=== PATIENT | male | born 1945 | race Caucasian/White ===

== ENCOUNTER → 2016-09-15 | Outpatient (CLI) | payer BC ==
[~2016-09-15] MED LIST: ASPI81TA28 PO; ATOR-24 PO; ENAL10TA88 PO; FLAX10007 PO; GLC/500 PO; HYDR25TA4 PO; ISOS60TA25 PO; METO25TA56 PO; MISCTAB78 PO; MULT-506 PO; OMEG10007 PO; PRED1SUS3 OPR; SIMV10TA2 PO; VITA-88 PO
[2016-09-15 14:29] LABS: ESTIMATED AVERAGE GLUCOSE 143 mg/dl; HA1C FLAG Normal (Normal)
[2016-09-15 17:37] LABS: ALT/SGPT 46 U/L (12-78); AST/SGOT 38 U/L (15-37); BLOOD UREA NITROGEN 25 mg/dl (7-18); BUN/CREATININE RATIO 24.8 (10-20); CALCIUM 8.6 mg/dl (8.5-10.1); CARBON DIOXIDE 31 mmol/L (21-32); CHLORIDE 102 mmol/L (98-107); CREATININE 0.99 mg/dl (0.60-1.40); GLUCOSE 126 mg/dl (70-99); POTASSIUM 3.8 mmol/L (3.5-5.1); SODIUM 139 mmol/L (136-145); TRIGLYCERIDES 82 mg/dl (0-150); VERY LOW DENSITY LIPOPROT CALC 16 mg/dl
[2016-09-15 17:57] LABS: CHOLESTEROL 108 mg/dl (0-200); CHOLESTEROL/HDL RATIO 2.3; HDL CHOLESTEROL 47 mg/dl; LDL CHOLESTEROL CALCULATED 45 mg/dl
--- NOTE | 2016-09-20 09:34 | CODING QUERY MEDICAL NECESSITY ---
SUPPORTING DIAGNOSIS NEEDED A supporting diagnosis is required for the test/procedure performed on this patient in order for us to be reimbursed by the patient's insurance. Please provide a supporting diagnosis for the following test/procedure listed below next to the test name along with your signature. *If there is no additional diagnosis for this patient that would support the following test/procedure please document that below next to the test/procedure. Test(s)/Procedure(s) that require a supporting diagnosis: DOS 09/15 * Hba1c DIAGNOSIS: Provider Signature: Date: Thank you Shelia Dominguez Health Information Management Once completed, please kindly fax back to [phone] For questions please call [phone]
== END | disposition home or self-care (01) ==
LOC: C.LABMFLN 08:07
PROVIDERS: ATTEND Family Medicine
DX: E11.9 Type 2 diabetes mellitus without complications (principal); E78.5 Hyperlipidemia, unspecified; I10 Essential (primary) hypertension; Z12.5 Encounter for screening for malignant neoplasm of prostate

== ENCOUNTER → 2016-09-16 | Outpatient (CLI) | payer BC ==
[2016-09-16 18:59] LABS: RATIO 5.4 mcg/mg (0-30.0)
== END | disposition home or self-care (01) ==
LOC: C.LABMFLN 07:27
PROVIDERS: ATTEND Family Medicine
DX: E11.9 Type 2 diabetes mellitus without complications (principal)

== ENCOUNTER → 2016-11-24 | Day surgery (SDC) | payer BC ==
[2016-11-19 09:34] VITALS: Ht 172.7 cm; Wt 77.3 kg
[~2016-11-24] VITALS: Ht 172.7 cm; Wt 77.3 kg
[~2016-11-24] MED LIST changes: +500ML BSS 0.3ML EPI 1:1000PF IRRIG ONE; +ACETAMINOPHEN 325 MG TAB PO PRN; +AMVISC PLUS 0.8ML SYRINGE INT OCU ONE; +ATROPINE SULFATE 0.1 MG/ML 5ML SYR IV PRN; +AcetaZOLAMIDE 250 MG TAB PO SCH; +BETAXOLOL HCL 0.25% OP SUSP PER DROP CHARGE OPR SCH; +BRIMONIDINE TART 0.2% OP SOLN PER DROP CHARGE ONE; +BSS FLUSH ONE; +ENDOCOAT 0.85ML SYRINGE INT OCU ONE; +EpHEDrine SULFATE INJ 50 MG/ML AMP IV PRN; +EpINEphrine INJ 1MG/ML AMP 1 MG/ML AMP ONE; +LACTATED RINGER'S 1000ML 500 ML IV SCH; +LIDOCAINE 4% OP SOLN DROP CHARGE ONE; +LIDOCAINE 4% OP SOLN DROP CHARGE OPR SCH; +LIDOCAINE HCL 1% MPF 2 ML VIAL ONE; +MIDAZOLAM HCL 1 MG/ML 2ML VIAL ONE; +MIX: 4ML BSS 1ML EPI 1:1000 PF INSTIL ONE; +MOXIFLOXACIN OPH SOLN PER DROP CHARGE ONE; +OCUCOAT 1 ML SOLN IO ONE; +PHENYLEPHRINE HCL 2.5% OP SOLN PER DROP CHARGE OPR SCH; +POVIDONE-IODINE OP SOLN 30 ML BTL ONE; +PROPARACAINE 0.5% OP SOLN PER DROP CHARGE OPR SCH; -SIMV10TA2 PO; +TOBRAMYCIN/DEXAMETHASONE OPH OINT PER APPLN CHARGE ONE
--- NOTE | 2016-11-24 07:16 | History & Physical Bridge - SC ---
H&P Re-Evaluation Bridge Note: I have examined the patient, reviewed the History & Physical and in the interval since the performance of the History & Physical I have noted the following changes of clinical significance: No changes noted
[2016-11-24] MEDS: PHENYLEPHRINE HCL 2.5% OP SOLN PER DROP CHARGE OPR SCH ×2 (07:37→07:42)
[2016-11-24] MEDS: TROPICAMIDE 1% OP SOLN PER DROP CHARGE OPR SCH ×2 (07:38→07:43)
[2016-11-24] MEDS: CYCLOPENTOLATE HCL 1% OP SOLN PER DROP CHARGE OPR SCH ×2 (07:39→07:44)
[2016-11-24] MEDS: MOXIFLOXACIN OPH SOLN PER DROP CHARGE OPR SCH ×2 (07:40→07:50)
--- NOTE | 2016-11-24 08:37 | Discharge Instructions-SurgCtr ---
Discharge Instructions Date of Service Nov 24, 2016. Visit Reason for Visit: Right Cataract Discharge Discharge Diagnosis / Problem: lens implant right eye Discharge Goals Goal(s): Improve function Activity Recommendations Activity Limitations: resume your previous activity Lifting Limitations: no more than 10 pounds Exercise/Sports Limitations: gradually increase as tolerated May Resume Sexual Activity: when tolerated Shower/Bathe: tomorrow Driving or Machine Use: resume 1 day after discharge Anesthesia . Post Anesthesia Instructions: If you have had General Anesthesia or IV Sedation: * Do not drive today. * Resume driving when surgeon permits. * Do not make important decisions or sign legal documents today. * Call surgeon for: 1. Temperature elevations greater than 101 degrees F. 2. Uncontrollable pain. 3. Excessive bleeding. 4. Persistent nausea and vomiting. 5. Medication intolerance (nausea, vomiting or rash). * For nausea and vomiting use only clear liquids such as: tea, soda, bouillon until nausea subsides, then gradually increase diet as tolerated. * If you have any concerns or questions, call your surgeon's office. If physician is unavailable and it is an emergency, call 911 or go to the nearest emergency room. . Instructions / Follow-Up Instructions / Follow-Up ACTIVITY RECOMMENDATIONS: * Light activities. * Mild irritation and blurred vision are common for the first few days. * You may walk outside, read, watch television. * Redness around the white part of the eye is common. MEDICATIONS: Resume previous medications unless instructed otherwise by your surgeon. * Take white Diamox (Acetazolamide) tablet at 1 pm today. Start all eye drops at 1 pm today: * Eye drops (today and tomorrow): Prednisone - one drop in operative eye every 3 hours while awake Ofloxacin - one drop in operative eye every 3 hours while awake SPECIAL CARE INSTRUCTIONS: * Tape plastic shield over eye to sleep at night. Call your doctor at with any concerns or problems. FOLLOW UP VISIT: Follow-up with Dr Pascal at [place] office as scheduled. Diet Recommendations Home Diet: no limitations Procedures Procedures Performed: cataract extraction with lens implant Pending Studies Studies pending at discharge: no Medical Emergencies . Who to Call and When: Medical Emergencies: If at any time you feel your situation is an emergency, please call 911 immediately. . Non-Emergent Contact Non-Emergency issues call your: Manager Development Call Non-Emergent contact if: your pain is not controlled [phone] . . "Provider Documentation" section prepared by Slick Pascal. .
--- NOTE | 2016-11-24 08:39 | [facility] Operative Report ---
Operative Report Date of Service Nov 24, 2016. Operative Report 1. PREOPERATIVE DIAGNOSIS: Senile nuclear cataract, right eye. 2. POSTOPERATIVE DIAGNOSIS: Senile nuclear cataract, right eye. 3. PROCEDURE: Phacoemulsification of right cataract with posterior chamber lens implant, type Nir, model [id number], power +17.5 diopters. ANESTHESIA: Local standby. SURGEON: Dr. Pascal. COMPLICATIONS: None. OPERATING TIME: 10 minutes. 4. OPERATION AND FINDINGS: DESCRIPTION OF PROCEDURE: The right pupil was dilated. The anesthetic was administered using a topical technique. The right eye was prepped and draped. A speculum was placed. A clear corneal incision was formed. The chamber was filled with Amvisc Plus and Endocoat. Epinephrine solution was used. A paracentesis was placed. A capsulorrhexis was performed. The nucleus was hydrodissected. The lens was removed with phacoemulsification. Time was 5.93 seconds. The aspiration unit was used to remove the cortex. The capsule was filled with Amvisc Plus. The lens implant was folded and placed into the capsule. The incision was hydrated. The Amvisc was aspirated. The wound was secure. The chamber was deep. The pupil was round. Brimonidine, TobraDex ointment and Vigamox solution were placed. The speculum was removed. The patient was returned to the Recovery Room in stable condition. I attest to the content of the Intraoperative Record and any orders documented therein. Any exceptions are noted below. The scribe's documentation has been prepared in my presence, under my direction and personally reviewed by me in its entirety. I confirm that the note above accurately reflects all work, treatment, procedures, and medical decision making performed by me. I personally scribed for Slick Pascal M.D. ([email or web address]) on 11/24/16 at 08:39. Electronically submitted by Aishwarya Kowalski ([facility]).
[2016-11-24 08:40] VITALS: TEMP 36.4
--- NOTE | 2016-11-24 08:49 | Anesthesia Progress Nt - [facility] ---
Anesthesia Post Op Note Date & Time Nov 24, 2016 at 08:49 Vital Signs Pain Intensity: 1 Vital Signs Past 12 Hours Date Time Temp Pulse Resp B/P (MAP) Pulse Ox O2 Delivery O2 Flow Rate FiO2 11/24/16 08:40 36.4 50 16 172/80 (110) 97 Room Air 11/24/16 07:31 36.5 48 16 139/80 (99) 96 Room Air Notes Mental Status: alert / awake / arousable, participated in evaluation Pt Amnestic to Procedure: Yes Nausea / Vomiting: adequately controlled Pain: adequately controlled Airway Patency, RR, SpO2: stable & adequate BP & HR: stable & adequate Hydration State: stable & adequate Anesthetic Complications: no major complications apparent
[2016-11-24 09:04] VITALS: BP 144/75; PULSE 46; O2SAT 96
== END | disposition home or self-care (01) ==
LOC: X.SURG 07:01
PROVIDERS: ATTEND Specialist
DX: H25.11 Age-related nuclear cataract, right eye (principal); E11.36 Type 2 diabetes mellitus with diabetic cataract; I10 Essential (primary) hypertension; I25.10 Atherosclerotic heart disease of native coronary artery without angina pectoris; I25.2 Old myocardial infarction

== ENCOUNTER → 2016-12-15 | Day surgery (SDC) | payer BC ==
[2016-12-06 12:23] VITALS: Ht 172.7 cm; Wt 77.3 kg
[~2016-12-15] VITALS: Ht 172.7 cm; Wt 77.3 kg
[~2016-12-15] MED LIST changes: +BETAXOLOL HCL 0.25% OP SUSP PER DROP CHARGE OPL SCH; -BETAXOLOL HCL 0.25% OP SUSP PER DROP CHARGE OPR SCH; +LIDOCAINE 4% OP SOLN DROP CHARGE OPL SCH; -LIDOCAINE 4% OP SOLN DROP CHARGE OPR SCH; -PHENYLEPHRINE HCL 2.5% OP SOLN PER DROP CHARGE OPR SCH; +PROPARACAINE 0.5% OP SOLN PER DROP CHARGE OPL SCH; -PROPARACAINE 0.5% OP SOLN PER DROP CHARGE OPR SCH
[2016-12-15] MEDS: PHENYLEPHRINE HCL 2.5% OP SOLN PER DROP CHARGE OPL SCH ×2 (09:37→09:42)
[2016-12-15] MEDS: CYCLOPENTOLATE HCL 1% OP SOLN PER DROP CHARGE OPL SCH ×2 (09:38→09:44)
[2016-12-15] MEDS: TROPICAMIDE 1% OP SOLN PER DROP CHARGE OPL SCH ×2 (09:38→09:43)
[2016-12-15] MEDS: MOXIFLOXACIN OPH SOLN PER DROP CHARGE OPL SCH ×2 (09:39→09:52)
--- NOTE | 2016-12-15 10:57 | [facility] Post Operative Brief Note ---
Immediate Operative Summary Operative Date Dec 15, 2016. Pre-Operative Diagnosis Cataract Left Eye Post-Operative Diagnosis Same Procedure(s) Performed Left Cataract Phacoemulsification With Intraocular Lens Implant; Toric Lens Surgeon Dr. Pascal Neon Glass Blower Surgeon(s) None Estimated Blood Loss 0 Findings Nuclear cataract Fluids (cc crystalloids) 300 ml Specimens None Drains none Anesthesia L/S Complication(s) None Disposition Recovery Room / PACU
[2016-12-15 10:58] VITALS: TEMP 36.6
--- NOTE | 2016-12-15 11:00 | [facility] Operative Report ---
Operative Report Date of Service Dec 15, 2016. Operative Report PREOPERATIVE DIAGNOSIS: Senile nuclear cataract left eye. POSTOPERATIVE DIAGNOSIS: Senile nuclear cataract left eye. PROCEDURE: Phacoemulsification of left cataract with posterior chamber lens implant, type Nir, model [id number], power + 18.00 Diopters. ANESTHESIA: Local standby. SURGEON: Dr. Pascal. COMPLICATIONS: None. OPERATING TIME: 15 minutes. OPERATION AND FINDINGS: PROCEDURE: The left pupil was dilated. The anesthetic was administered using a topical technique. The left eye was prepped and draped. A speculum was placed. A clear corneal incision was formed. The chamber was filled with Amvisc Plus and endocoat. A paracentesis was placed. A capsulorrhexis was performed. The nucleus was hydrodissected. The lens was removed with phacoemulsification. Time was 4.80 seconds. The aspiration unit was used to remove the cortex. The capsule was filled with Amvisc Plus. The lens implant was folded and placed into the capsule. The incision was hydrated. The lens implant was rotated to the correct position. The Amvisc was aspirated. The wound was secure. The chamber was deep. The pupil was round. Alphagan solution and TobraDex ointment and Zymar solution were placed. The speculum was removed. DISPOSITION: The patient was returned to the recovery room in stable condition I attest to the content of the Intraoperative Record and any orders documented therein. Any exceptions are noted below.
--- NOTE | 2016-12-15 11:02 | Discharge Instructions-SurgCtr ---
Discharge Instructions Date of Service Dec 15, 2016. Visit Reason for Visit: Left Cataract Discharge Discharge Diagnosis / Problem: Pseudophakia left eye Discharge Goals Goal(s): Improve function Medications Stopped Medications Name(s): METFORMIN 12/12 Activity Recommendations Activity Limitations: per Instructions/Follow-up section Lifting Limitations: no more than 10 pounds Exercise/Sports Limitations: as tolerated May Resume Sexual Activity: when tolerated Shower/Bathe: tomorrow Driving or Machine Use: resume 1 day after discharge As noted Anesthesia . Post Anesthesia Instructions: If you have had General Anesthesia or IV Sedation: * Do not drive today. * Resume driving when surgeon permits. * Do not make important decisions or sign legal documents today. * Call surgeon for: 1. Temperature elevations greater than 101 degrees F. 2. Uncontrollable pain. 3. Excessive bleeding. 4. Persistent nausea and vomiting. 5. Medication intolerance (nausea, vomiting or rash). * For nausea and vomiting use only clear liquids such as: tea, soda, bouillon until nausea subsides, then gradually increase diet as tolerated. * If you have any concerns or questions, call your surgeon's office. If physician is unavailable and it is an emergency, call 911 or go to the nearest emergency room. . Diet Recommendations Home Diet: resume previous diet Procedures Procedures Performed: Left Cataract Phacoemulsification With Intraocular Lens Implant; Toric Lens Pending Studies Studies pending at discharge: no Medical Emergencies . Who to Call and When: Medical Emergencies: If at any time you feel your situation is an emergency, please call 911 immediately. . Non-Emergent Contact Non-Emergency issues call your: Garbage Stoker . . "Provider Documentation" section prepared by Slick Pascal. .
--- NOTE | 2016-12-15 11:13 | Anesthesia Progress Nt - [facility] ---
Anesthesia Post Op Note Date & Time Dec 15, 2016 at 11:12 Vital Signs Pain Intensity: 0 Vital Signs Past 12 Hours Date Time Temp Pulse Resp B/P (MAP) Pulse Ox O2 Delivery O2 Flow Rate FiO2 12/15/16 10:58 36.6 50 16 157/75 (102) 97 Room Air 12/15/16 09:16 36.6 46 18 121/71 (88) 95 Room Air Notes Mental Status: alert / awake / arousable, participated in evaluation Pt Amnestic to Procedure: Yes Nausea / Vomiting: adequately controlled Pain: adequately controlled Airway Patency, RR, SpO2: stable & adequate BP & HR: stable & adequate Hydration State: stable & adequate Anesthetic Complications: no major complications apparent
--- NOTE | 2016-12-15 11:21 | Discharge Instructions-SurgCtr ---
Discharge Instructions Date of Service Dec 15, 2016. Visit Reason for Visit: Left Cataract Discharge Discharge Diagnosis / Problem: Pseudophakia left eye Discharge Goals Goal(s): Improve function Medications Stopped Medications Name(s): METFORMIN 12/12. Per discharge instructions may resume. Activity Recommendations Activity Limitations: per Instructions/Follow-up section Lifting Limitations: no more than 10 pounds Exercise/Sports Limitations: as tolerated May Resume Sexual Activity: when tolerated Shower/Bathe: tomorrow Driving or Machine Use: resume 1 day after discharge As noted Anesthesia . Post Anesthesia Instructions: If you have had General Anesthesia or IV Sedation: * Do not drive today. * Resume driving when surgeon permits. * Do not make important decisions or sign legal documents today. * Call surgeon for: 1. Temperature elevations greater than 101 degrees F. 2. Uncontrollable pain. 3. Excessive bleeding. 4. Persistent nausea and vomiting. 5. Medication intolerance (nausea, vomiting or rash). * For nausea and vomiting use only clear liquids such as: tea, soda, bouillon until nausea subsides, then gradually increase diet as tolerated. * If you have any concerns or questions, call your surgeon's office. If physician is unavailable and it is an emergency, call 911 or go to the nearest emergency room. . Instructions / Follow-Up Instructions / Follow-Up ACTIVITY RECOMMENDATIONS: * Light activities. * Mild irritation and blurred vision are common for the first few days. * You may walk outside, read, watch television. * Redness around the white part of the eye is common. MEDICATIONS: Resume previous medications unless instructed otherwise by your surgeon. * Take white Diamox (Acetazolamide) tablet at 2 pm today. Start all eye drops at 2 pm today: * Eye drops (today and tomorrow): Prednisone - one drop in operative eye every 3 hours while awake Ofloxacin - one drop in operative eye every 3 hours while awake SPECIAL CARE INSTRUCTIONS: * Tape plastic shield over eye to sleep at night. Call your doctor at with any concerns or problems. FOLLOW UP VISIT: Follow-up with Dr Pascal at [place] office as scheduled. Diet Recommendations Home Diet: resume previous diet Procedures Procedures Performed: Left Cataract Phacoemulsification With Intraocular Lens Implant; Toric Lens Pending Studies Studies pending at discharge: no Medical Emergencies . Who to Call and When: Medical Emergencies: If at any time you feel your situation is an emergency, please call 911 immediately. . Non-Emergent Contact Non-Emergency issues call your: Warehouse Specialist . . "Provider Documentation" section prepared by Slick Pascal. .
[2016-12-15 11:22] VITALS: BP 123/67; PULSE 50; O2SAT 96
== END | disposition home or self-care (01) ==
LOC: X.SURG 08:19
PROVIDERS: ATTEND Specialist
DX: H25.12 Age-related nuclear cataract, left eye (principal); I10 Essential (primary) hypertension; E11.9 Type 2 diabetes mellitus without complications; Z79.84 Long term (current) use of oral hypoglycemic drugs; Z79.899 Other long term (current) drug therapy

== ENCOUNTER → 2017-09-06 | Outpatient (CLI) | payer BC ==
[~2017-09-06] MED LIST changes: -500ML BSS 0.3ML EPI 1:1000PF IRRIG ONE; -ACETAMINOPHEN 325 MG TAB PO PRN; -AMVISC PLUS 0.8ML SYRINGE INT OCU ONE; -ATROPINE SULFATE 0.1 MG/ML 5ML SYR IV PRN; -AcetaZOLAMIDE 250 MG TAB PO SCH; -BETAXOLOL HCL 0.25% OP SUSP PER DROP CHARGE OPL SCH; -BRIMONIDINE TART 0.2% OP SOLN PER DROP CHARGE ONE; -BSS FLUSH ONE; -ENDOCOAT 0.85ML SYRINGE INT OCU ONE; -EpHEDrine SULFATE INJ 50 MG/ML AMP IV PRN; -EpINEphrine INJ 1MG/ML AMP 1 MG/ML AMP ONE; -LACTATED RINGER'S 1000ML 500 ML IV SCH; -LIDOCAINE 4% OP SOLN DROP CHARGE ONE; -LIDOCAINE 4% OP SOLN DROP CHARGE OPL SCH; -LIDOCAINE HCL 1% MPF 2 ML VIAL ONE; -MIDAZOLAM HCL 1 MG/ML 2ML VIAL ONE; -MIX: 4ML BSS 1ML EPI 1:1000 PF INSTIL ONE; -MOXIFLOXACIN OPH SOLN PER DROP CHARGE ONE; -OCUCOAT 1 ML SOLN IO ONE; -POVIDONE-IODINE OP SOLN 30 ML BTL ONE; -PROPARACAINE 0.5% OP SOLN PER DROP CHARGE OPL SCH; -TOBRAMYCIN/DEXAMETHASONE OPH OINT PER APPLN CHARGE ONE
[2017-09-06 13:50] LABS: HEMOGLOBIN A1C 6.4 % (4.5-5.6)
[2017-09-06 14:10] LABS: ALBUMIN 3.7 gm/dl (3.4-5.0); ALT/SGPT 46 U/L (12-78); BLOOD UREA NITROGEN 23 mg/dl (7-18); CALCIUM 8.8 mg/dl (8.5-10.1); CARBON DIOXIDE 30 mmol/L (21-32); CHOLESTEROL 102 mg/dl (0-200); CREATININE 0.96 mg/dl (0.60-1.40); GLUCOSE 115 mg/dl (70-99); POTASSIUM 4.1 mmol/L (3.5-5.1); SODIUM 136 mmol/L (136-145)
[2017-09-06 14:12] LABS: ALKALINE PHOSPHATASE 74 U/L (45-117); AST/SGOT 29 U/L (15-37); LDL CHOLESTEROL CALCULATED 39 mg/dl; TOTAL PROTEIN 7.3 gm/dl (6.4-8.2)
== END | disposition home or self-care (01) ==
LOC: C.LABMFLN 09:44
PROVIDERS: ATTEND Family Medicine
DX: E78.5 Hyperlipidemia, unspecified (principal); I10 Essential (primary) hypertension; I25.10 Atherosclerotic heart disease of native coronary artery without angina pectoris; E11.9 Type 2 diabetes mellitus without complications; Z11.59 Encounter for screening for other viral diseases

== ENCOUNTER → 2018-01-17 | Day surgery (SDC) | payer BC ==
[2018-01-10 10:41] VITALS: BMI 28.0
[~2018-01-17] VITALS: Ht 170.2 cm; Wt 81.8 kg
[~2018-01-17] MED LIST changes: +LIDOCAINE HCL 2% 2 ML VIAL (20MG/ML) ONE; -PRED1SUS3 OPR; +PROPOFOL IV EMULSION 10 MG/ML 20 ML VIAL ONE; +SODIUM CHLORIDE 0.9% 500ML 500 ML IV ONE; -VITA-88 PO
[2018-01-17 07:59] VITALS: BMI 28.0
[2018-01-17 08:02] VITALS: Ht 170.2 cm; Wt 81.8 kg
--- NOTE | 2018-01-17 08:42 | Endo History and Physical ---
History & Physical Date of Service: Jan 17, 2018. Chief Complaint: SCREENING Referring Physician: DR. MILLS History of Present Illness 72 yo CM who presents for screening colonoscopy. Past Surgical History Hx Cardiac Surgery: Yes (HEART CATH X1 W 1 STENT @ [facility] [place] 2001) Hx Internal Defibrillator: No Hx Pacemaker: No Hx Abdominal Surgery: No Hx of Implantable Prosthesis: No Hx Post-Op Nausea and Vomiting: No Hx Cancer Surgery: No Hx Thoracic Surgery: No Hx Orthopedic: Yes (LUMBAR FUSION X 2, RT/LT KNEE ARTHROSCOPY, RT FOOT SX) Hx Urinary Tract Surgery: No Family History None Social History Smoking Status: Never Smoker Hx Substance Use: No Hx Alcohol Use: Yes (OCCASIONAL) Allergies Coded Allergies: No Known Allergies (Verified , 01/17/18) Current Medications Reported Home Medications Medications Dose Route/Sig Max Daily Dose Days Date Category Flax Seed Oil (Flaxseed (Linseed)) 1,000 Mg Cap 1 Tab PO QAM 11/19/16 Reported Osteo Bi-Flex Advanced Do ([facility] Products) 1 Tab Tab 2 Tab PO QAM 11/19/16 Reported [place]-3 (Fish Oil) 1 Ea Cap 1 Cap PO QAM 11/19/16 Reported Multivitamin (Multivitamins) Tab 1 Tab PO QAM 11/19/16 Reported Aspirin Ec (Aspirin) 81 Mg Tab 81 Mg PO QAM 11/19/16 Reported Hctz (Hydrochlorothiazide) 25 Mg Tab 25 Mg PO QAM 11/19/16 Reported Lopressor (Metoprolol Tartrate) 25 Mg Tab 25 Mg PO BID 11/19/16 Reported Lipitor (Atorvastatin Calcium) 40 Mg Tab 40 Mg PO HS 11/19/16 Reported Glucophage (Metformin Hcl) 500 Mg Tab 500 Mg PO DINNER 11/19/16 Reported Vasotec (Enalapril Maleate) 10 Mg Tab 10 Mg PO BID 09/29/10 Reported Imdur Ext Rel (Isosorbide Mononitrate) 60 Mg Ertab 60 Mg PO QAM 09/29/10 Reported Vital Signs Weight (Kilograms): 81.82 Height (Feet): 5 Height (Inches): 7 Date Time Temp Pulse Resp B/P (MAP) Pulse Ox O2 Delivery O2 Flow Rate FiO2 01/17/18 08:07 36.1 63 18 142/81 (101) 96 Room Air Physical Exam General Appearance: WD/WN, no apparent distress Respiratory/Chest: Auscultation: breath sounds normal Cardiovascular: Heart Auscultation: RRR Abdomen: Bowel Sounds: normal Inspection & Palpation: soft, non-distended, no tenderness, guarding & rebound Assessment and Plan Assessment: 72 yo CM who presents for screening colonoscopy. Plan: Proceed with colonoscopy.
--- NOTE | 2018-01-17 09:22 | Discharge Instructions ---
Endoscopy Patient Instructions Date / Procedure(s) Performed Jan 17, 2018. Colonoscopy Allergy Information Coded Allergies: No Known Allergies (Verified , 01/17/18) Discharge Date / Findings Jan 17, 2018. Internal hemorrhoids Medication Instructions OK to resume all medications today as prescribed Reported Home Medications Medications Dose Route/Sig Max Daily Dose Days Date Category Flax Seed Oil (Flaxseed (Linseed)) 1,000 Mg Cap 1 Tab PO QAM 11/19/16 Reported Osteo Bi-Flex Advanced Do ([employer] Natural Products) 1 Tab Tab 2 Tab PO QAM 11/19/16 Reported [place]-3 (Fish Oil) 1 Ea Cap 1 Cap PO QAM 11/19/16 Reported Multivitamin (Multivitamins) Tab 1 Tab PO QAM 11/19/16 Reported Aspirin Ec (Aspirin) 81 Mg Tab 81 Mg PO QAM 11/19/16 Reported Hctz (Hydrochlorothiazide) 25 Mg Tab 25 Mg PO QAM 11/19/16 Reported Lopressor (Metoprolol Tartrate) 25 Mg Tab 25 Mg PO BID 11/19/16 Reported Lipitor (Atorvastatin Calcium) 40 Mg Tab 40 Mg PO HS 11/19/16 Reported Glucophage (Metformin Hcl) 500 Mg Tab 500 Mg PO DINNER 11/19/16 Reported Vasotec (Enalapril Maleate) 10 Mg Tab 10 Mg PO BID 09/29/10 Reported Imdur Ext Rel (Isosorbide Mononitrate) 60 Mg Ertab 60 Mg PO QAM 09/29/10 Reported Provider Instructions Activity Restrictions - No exercising or heavy lifting for 24 hours. - Do not drink alcohol the day of the procedure. - Do not drive a car or operate machinery until the day after the procedure. - Do not make any important decisions or sign important papers in 24 hours after the procedure. Following Day: - Return to full activity which may include returning to work/school. Diet Start your diet with liquids and light foods (jello, soup, juice, toast). Then eat your usual diet if not nauseated. Treatment For Common After Affects For mild abdominal pain, bloating, or excessive gas: - Rest - Eat lightly - Lie on right side Follow-Up Information Follow-up with DR. MILLS as scheduled Anesthesia Information What You Should Know You have had a procedure that required some medicine to reduce anxiety and discomfort. This treatment is called moderate sedation. After receiving the treatment, you may be sleepy, but you will be able to breathe on your own. The effects of the treatment may last for several hours. Follow these instructions along with Activity/Diet recommendations noted above: * Do NOT do anything where dizziness or clumsiness would be dangerous. * Rest quietly at home today, then you can be up and about tomorrow. * Have a responsible person stay with you the rest of today. * You may have had an I.V. today. If so, you may take the dressing off later today. Recommendations Call your doctor if: * Trouble breathing * Continuous vomiting for more than 24 hours * Temperature above 101 degrees * Severe abdominal pain or bloating * Pain not relieved by pain medicine ordered * There is increased drainage or redness from any incision * A large amount of rectal bleeding greater than 2-3 tablespoons. (If you had a polyp/s removed or have hemorrhoids, a small amount of blood - from the rectum is to be expected.) * You have any unanswered questions or concerns. IN THE EVENT OF A SERIOUS EMERGENCY, GO TO THE NEAREST EMERGENCY ROOM Your discharge instructions were prepared by provider Charlie Julio. Patient Instructions Signature Page Dimitris Mobley Patient (or Guardian) Signature/Date: I have read and understand the instructions given to me by my caregivers. Caregiver/RN/Doctor Signature/Date: The above-named patient and/or guardian has received patient instructions on this date. + Original Patient Signature Page (only) stays with chart. Please make copy for patient.
--- NOTE | 2018-01-17 09:27 | GI REPORT ---
Patient Name: Dimitris Mobley Procedure Date: 01/17/2018 8:08 AM Date of : 1945 Admit Type: Outpatient Age: 72 Gender: Male Attending MD: Charlie Julio DO Procedure: Colonoscopy Providers: Charlie Julio DO Referring MD: Brain Zamorano Indications: Screening for colorectal malignant neoplasm Medicines: Monitored Anesthesia Care Complications: No immediate complications. Estimated Blood Loss: Estimated blood loss: none. Procedure: Pre-Anesthesia Assessment: - Prior to the procedure, a History and Physical was performed, and patient medications and allergies were reviewed. The patient's tolerance of previous anesthesia was also reviewed. The risks and benefits of the procedure and the sedation options and risks were discussed with the patient. All questions were answered, and informed consent was obtained. Prior Anticoagulants: The patient has taken aspirin, last dose was 13 days prior to procedure. ASA Grade Assessment: II - A patient with mild systemic disease. After reviewing the risks and benefits, the patient was deemed in satisfactory condition to undergo the procedure. After I obtained informed consent, the scope was passed under direct vision. Throughout the procedure, the patient's blood pressure, pulse, and oxygen saturations were monitored continuously. The Scope was introduced through the anus and advanced to the cecum, identified by appendiceal orifice and ileocecal valve. The colonoscopy was performed with difficulty due to a redundant colon. Successful completion of the procedure was aided by changing the patient to a supine position. The patient tolerated the procedure well. The quality of the bowel preparation was fair. The ileocecal valve, appendiceal orifice, and rectum were photographed. Findings: The perianal and digital rectal examinations were normal. Non-bleeding internal hemorrhoids were found during retroflexion. The hemorrhoids were small. Impression: - Preparation of the colon was fair. - Non-bleeding internal hemorrhoids. - No specimens collected. Recommendation: - Resume previous diet. - Continue present medications. - No repeat colonoscopy due to age and the absence of advanced adenomas. - Return to primary care physician as previously scheduled. Charlie Julio DO 01/17/2018 9:27:06 AM This report has been signed electronically. Note Initiated On: 01/17/2018 8:08 AM Number of Addenda: 0 I attest to the content of the Intraoperative Record and orders documented therein, exceptions below {[id number]}
--- NOTE | 2018-01-17 09:33 | Anesthesiology Progress Note ---
Anesthesia Post Op Note Date & Time Jan 17, 2018 at 09:33 Vital Signs Pain Intensity: 0 Vital Signs Past 12 Hours Date Time Temp Pulse Resp B/P (MAP) Pulse Ox O2 Delivery O2 Flow Rate FiO2 01/17/18 09:25 36.0 63 16 116/73 (87) 98 Room Air 01/17/18 08:07 36.1 63 18 142/81 (101) 96 Room Air Notes Mental Status: alert / awake / arousable, participated in evaluation Pt Amnestic to Procedure: Yes Nausea / Vomiting: adequately controlled Pain: adequately controlled Airway Patency, RR, SpO2: stable & adequate BP & HR: stable & adequate Hydration State: stable & adequate Anesthetic Complications: no major complications apparent
[2018-01-17 09:55] VITALS: BP 134/64; PULSE 59; O2SAT 96
== END | disposition home or self-care (01) ==
LOC: C.GI 07:21
PROVIDERS: ATTEND Internal Medicine
DX: Z12.11 Encounter for screening for malignant neoplasm of colon (principal); K64.8 Other hemorrhoids; I10 Essential (primary) hypertension; E11.9 Type 2 diabetes mellitus without complications; Z79.82 Long term (current) use of aspirin; Z79.899 Other long term (current) drug therapy; Z79.84 Long term (current) use of oral hypoglycemic drugs; M19.90 Unspecified osteoarthritis, unspecified site; I25.10 Atherosclerotic heart disease of native coronary artery without angina pectoris

== ENCOUNTER → 2018-01-23 | Outpatient (CLI) | payer BC ==
[~2018-01-23] MED LIST changes: -LIDOCAINE HCL 2% 2 ML VIAL (20MG/ML) ONE; -PROPOFOL IV EMULSION 10 MG/ML 20 ML VIAL ONE; -SODIUM CHLORIDE 0.9% 500ML 500 ML IV ONE
[2018-01-23 17:48] LABS: MEAN CORPUSCULAR HGB CONC 34.3 g/dl (32-36); MEAN PLATELET VOLUME 9.7 fL (7.4-10.4); PLATELET COUNT 291 K/uL (130-400)
[2018-01-23 18:04] LABS: ALBUMIN 4.2 gm/dl (3.4-5.0); ALKALINE PHOSPHATASE 80 U/L (45-117); ALT/SGPT 49 U/L (12-78); AST/SGOT 39 U/L (15-37); BLOOD UREA NITROGEN 26 mg/dl (7-18); CALCIUM 9.1 mg/dl (8.5-10.1); CARBON DIOXIDE 30 mmol/L (21-32); CHOLESTEROL 100 mg/dl (0-200); CREATININE 1.24 mg/dl (0.60-1.40); GLUCOSE 107 mg/dl (70-99); LDL CHOLESTEROL CALCULATED 27 mg/dl; POTASSIUM 4.3 mmol/L (3.5-5.1); SODIUM 137 mmol/L (136-145); TOTAL PROTEIN 7.9 gm/dl (6.4-8.2)
[2018-01-23 19:40] LABS: HEMATOCRIT 45.5 % (42-52); HEMOGLOBIN 15.6 g/dL (14.0-18.0); MEAN CORPUSCULAR HEMOGLOBIN 31.9 pg (25-34); RED CELL DISTRIBUTION WIDTH CV 12.9 % (11.5-14.5); RED CELL DISTRIBUTION WIDTH SD 43.9 fL (36.4-46.3); WHITE BLOOD COUNT 7.74 K/uL (4.8-10.8)
[2018-01-24 05:43] LABS: HEMOGLOBIN A1C 6.4 % (4.5-5.6)
== END | disposition home or self-care (01) ==
LOC: C.LABMFLN 11:18
PROVIDERS: ATTEND Family Medicine
DX: E78.5 Hyperlipidemia, unspecified (principal); I10 Essential (primary) hypertension; I25.10 Atherosclerotic heart disease of native coronary artery without angina pectoris; E11.9 Type 2 diabetes mellitus without complications; R55 Syncope and collapse; M79.606 Pain in leg, unspecified

== ENCOUNTER → 2018-01-24 | Outpatient (CLI) | payer BC ==
--- NOTE | 2018-01-24 15:09 | DIAGNOSTIC IMAGING REPORT ---
VENOUS DOPPLER LWR EXT BILA HISTORY: Pain. Edema. BILATERAL LEG PAIN AND ELEVATED DDIMER COMPARISON STUDY: None. FINDINGS: There is normal compressibility, flow, and augmentation within the bilateral lower extremity deep venous systems. IMPRESSION: 1. No DVT within the right or left lower extremity. 2. 5 x 3 cm popliteal cyst posterior to the right knee. The above report was generated using voice recognition software. It may contain grammatical, syntax or spelling errors. Electronically signed by: Manuel Moore M.D. 01/24/2018 3:08 PM Dictated Date/Time: 01/24/2018 3:07 PM
== END | disposition home or self-care (01) ==
LOC: C.ULTRBC 14:32
PROVIDERS: ATTEND Family Medicine
DX: M79.606 Pain in leg, unspecified (principal)

== ENCOUNTER 2024-12-05 06:14 | Inpatient (IN) ==
--- NOTE | 2024-11-08 11:01 | PAT Medication Instructions ---
Medication Instructions Date of Service November 08, 2024 Home Medications Medication Instructions Recorded albuterol sulfate 90 mcg/actuation 2 puff inhalation Q4H PRN 08/26/22 aerosol inhaler shortness of breath or wheezing #8.5 grams valacyclovir 1 gram tablet 2,000 mg (2 x 1 gram) PO BID PRN 01/24/24 cold sores 1 day #20 tabs blood sugar diagnostic #100 ea 02/10/24 blood sugar diagnostic #100 ea 02/10/24 blood-glucose meter (OneTouch #1 ea 02/10/24 Ultra2 Meter) metoprolol tartrate 25 mg tablet 25 mg PO BID #180 tabs 09/04/24 meloxicam 15 mg tablet 15 mg PO DAILY PRN pain #90 tabs 09/11/24 enalapril maleate 10 mg tablet 10 mg PO BID #180 tabs 10/23/24 aspirin 81 mg tablet 81 mg PO QPM albuterol sulfate 90 mcg/actuation aerosol inhaler 2 puff inhalation Q4H PRN shortness of breath or wheezing valacyclovir 1 gram tablet 2,000 mg (2 x 1 gram) PO BID PRN cold sores metoprolol tartrate 25 mg tablet 25 mg PO BID meloxicam 15 mg tablet 15 mg PO DAILY PRN pain enalapril maleate 10 mg tablet 10 mg PO BID Glucotrust 1 cap PO DAILY cholecalciferol (vitamin D3) 10 mcg (400 unit) capsule (Vitamin D3) 10 mcg PO QAM coenzyme Q10 100 mg capsule (CoQ-10) 100 mg PO QAM docosahexaenoic acid (dha)-epa capsule 1 cap PO QAM flaxseed 1,000 mg capsule 1,000 mg PO QAM glucosamine-chondroitin 250 mg-200 mg tablet 1 tab PO DAILY hydrochlorothiazide 25 mg tablet 25 mg PO QAM metformin 500 mg tablet 500 mg PO QPM multivit,calcium,min-folic acid 240 mcg-D3 25 mcg-lycop 300 mcg tablet (One A Day Men Complete) 1 tab PO QAM rosuvastatin 10 mg tablet 10 mg PO QAM saw palmetto 450 mg capsule 900 mg PO QAM vitamin E 400 unit tablet 400 mg PO QAM Continue as directed valacyclovir 1 gram tablet 2,000 mg (2 x 1 gram) PO BID PRN cold sores (if needed) ASK your surgeon for instructions meloxicam 15 mg tablet 15 mg PO DAILY PRN pain ASK your prescriber and surgeon aspirin 81 mg tablet 81 mg PO QPM Glucotrust 1 cap PO DAILY STOP taking 2 weeks before surgery (or as soon as possible if surgery is within 2 weeks) coenzyme Q10 100 mg capsule (CoQ-10) 100 mg PO QAM docosahexaenoic acid (dha)-epa capsule 1 cap PO QAM flaxseed 1,000 mg capsule 1,000 mg PO QAM glucosamine-chondroitin 250 mg-200 mg tablet 1 tab PO DAILY saw palmetto 450 mg capsule 900 mg PO QAM vitamin E 400 unit tablet 400 mg PO QAM DO NOT take the morning of surgery enalapril maleate 10 mg tablet 10 mg PO BID cholecalciferol (vitamin D3) 10 mcg (400 unit) capsule (Vitamin D3) 10 mcg PO QAM hydrochlorothiazide 25 mg tablet 25 mg PO QAM One A Day Men Complete) 1 tab PO QAM Take morning of surgery With a small sip of water, OTHERWISE NOTHING TO EAT OR DRINK AFTER MIDNIGHT: albuterol sulfate 90 mcg/actuation aerosol inhaler 2 puff inhalation Q4H PRN shortness of breath or wheezing (use if needed; please bring rescue inhaler with you to hospital day of surgery if possible) metoprolol tartrate 25 mg tablet 25 mg PO BID rosuvastatin 10 mg tablet 10 mg PO QAM Take evening before surgery albuterol sulfate 90 mcg/actuation aerosol inhaler 2 puff inhalation Q4H PRN shortness of breath or wheezing (if needed) metoprolol tartrate 25 mg tablet 25 mg PO BID enalapril maleate 10 mg tablet 10 mg PO BID metformin 500 mg tablet 500 mg PO QPM Other Notes If you have any questions please call us at [phone] or [phone] or [phone] or [phone]
--- NOTE | 2024-11-12 13:17 | Anesthesiology Consultation ---
Date of Service November 12, 2024 Assessment & Plan (1) Encounter for pre-operative examination: Chart Review Chart Review: Acceptable Risk for Surgery (pending surgeon ordered PCP and cardio clearances ) and Patient seen in Pre Admission Testing - Awaiting PCP clearance 11/19/24 ([place]) - Awaiting cardio clearance 11/15/24 ([place]) - Check BSG AM DOS Per PAT appt on 11/12/24, no recent illness/disease exposures, illness related sy mptoms, or recent illness/disease positive tests. Will leave to surgeon's discretion if preop Covid testing needed Teaching & Discussion Pre-Anesthesia Teaching/Discussion Notes: Instructed NPO after midnight before surgery,except medications with 15 cc of water. Medication instructions provided according to the PAT guidelines. History Surgery Operation Date: 12/05/24 07:45 Proposed Procedures p L2-L4 Hardware Removal, L1-L2 Decompression, T12-L4 Fusion, Spinal Cord Monitoring - Giles Amador, Height/Weight Height: 5 ft 7 in Weight: 88.3 kg Allergies Allergy/AdvReac Type Severity Reaction Status Date / Time No Known Allergies Allergy Verified 11/06/24 13:09 Medications Home Medications Medication Instructions Recorded Confirmed Last Taken aspirin 81 mg tablet 81 mg PO QPM #30 tabs 01/18/19 11/06/24 Unknown albuterol sulfate 90 mcg/actuation 2 puff inhalation Q4H PRN 08/26/22 11/06/24 Unknown aerosol inhaler shortness of breath or wheezing #8.5 grams valacyclovir 1 gram tablet 2,000 mg (2 x 1 gram) PO BID PRN 01/24/24 11/06/24 Unknown cold sores 1 day #20 tabs blood sugar diagnostic #100 ea 02/10/24 08/27/24 Unknown blood sugar diagnostic #100 ea 02/10/24 08/27/24 Unknown blood-glucose meter (OneTouch #1 ea 02/10/24 08/27/24 Unknown Ultra2 Meter) metoprolol tartrate 25 mg tablet 25 mg PO BID #180 tabs 09/04/24 11/06/24 Unknown meloxicam 15 mg tablet 15 mg PO DAILY PRN pain #90 tabs 09/11/24 11/06/24 Unknown enalapril maleate 10 mg tablet 10 mg PO BID #180 tabs 10/23/24 11/06/24 Unknown Glucotrust 1 cap PO DAILY 11/06/24 11/06/24 Unknown cholecalciferol (vitamin D3) 10 10 mcg PO QAM 11/06/24 11/06/24 Unknown mcg (400 unit) capsule (Vitamin D3) coenzyme Q10 100 mg capsule 100 mg PO QAM 11/06/24 11/06/24 Unknown (CoQ-10) docosahexaenoic acid (dha)-epa 1 cap PO QAM 11/06/24 11/06/24 Unknown capsule flaxseed 1,000 mg capsule 1,000 mg PO QAM 11/06/24 11/06/24 Unknown glucosamine-chondroitin 250 mg-200 1 tab PO DAILY 11/06/24 11/06/24 Unknown mg tablet hydrochlorothiazide 25 mg tablet 25 mg PO QAM 11/06/24 11/06/24 Unknown metformin 500 mg tablet 500 mg PO QPM 11/06/24 11/06/24 Unknown multivit,calcium,min-folic acid 1 tab PO QAM 11/06/24 11/06/24 Unknown 240 mcg-D3 25 mcg-lycop 300 mcg tablet (One A Day Men Complete) rosuvastatin 10 mg tablet 10 mg PO QAM 11/06/24 11/06/24 Unknown saw palmetto 450 mg capsule 900 mg PO QAM 11/06/24 11/06/24 Unknown vitamin E 400 unit tablet 400 mg PO QAM 11/06/24 11/06/24 Unknown Past Medical History Medical History (Updated 11/13/24 @ 08:31 by Deanne Sharma PA-C) CAD (coronary artery disease) follows with Dr. Herman Multivessel CAD s/p OM2 PCI stent (2001) and RCA occlusion ([id number] and right to right collaterals) Chronic back pain Diabetes mellitus, type 2 on metformin History of hepatitis presume Hepatitis A after [place]--resolved History of shortness of breath summer 2023- due to humid weather - reason for inhaler prn (rarely used), pt states SOB has improved- has not needed inhaler Hyperlipidemia Hypertension Osteoarthritis Exercise / Class Metabolic Activity II 4-5 Yardwork/Stairs/Walk up hill (one flight of stairs- no chest pain or SOB ) Past Family History Family History Brother Diabetes Mother Rheumatoid arthritis Other No family history of adverse response to anesthesia Denies family history of Sudden SIDS (sudden infant syndrome) Ovarian cancer Prostate cancer Deep vein thrombosis Osteoporosis Coronary heart disease Dyslipidemia Cerebral aneurysm Alzheimer disease Bipolar disorder Clotting disorder Crohn's disease Dementia Depression Heart disease Kidney disease Myocardial infarction Osteoarthritis Breast cancer Schizophrenia Congenital kidney disease Gestational diabetes Lung cancer COPD (chronic obstructive pulmonary disease) Colorectal cancer Pulmonary embolism Lung disease Cancer Hypertension Ulcerative colitis Colonic polyp Stroke Asthma Cystic kidney disease Past Surgical History Surgical History History of bilateral cataract extraction History of cardiac cath (08/24/01) 1 stent placed--done at [facility]--was done per pt for shortness of breath History of colonoscopy History of detached retina repair History of elbow surgery History of heart artery stent (08/24/01) x1 History of insertion of dental endosseous implant History of lumbar spinal fusion x2 S/P foot surgery, right top of foot S/P left knee arthroscopy S/P right knee arthroscopy Past Anesthesia History No Hx of Anesthesia Complications and No Family Hx of Anesthesia Complications History of PONV No Hx of PONV and No Hx of Motion Sickness Social History Smoking Status: Never smoker Do You Dip or Chew Tobacco: No Hx Alcohol Use: Yes Alcohol type: beer alcohol intake frequency: holidays/special occasions only Hx Substance Use: No substance use type: does not use Review of Systems - Watery eyes, sore throat, dry cough, rhinitis 1-2 weeks ago - mostly resolved as of 11/12/24 (PAT appt) - Reflux - diet dependent- relieved with Tums - Hx of snoring - no witnessed apnea - no hx of sleep study Patient denies chest pain, shortness of breath, dyspnea on exertion, wheezing, palpitations. No hx of seizures, stroke. No hx of blood clots or blood transfusions Physical Exam Vital Signs VITALS BP 167/74 P 58 TEMP 97.6 SP02 95% RESP 16 Constitutional no acute distress ENMT Mouth: no TMJ clicking Thyromental Distance: > or= 3.5 Finger Breadths (3.5) Mallampati Class: III Permanent implant to top front tooth and side teeth Cap to bottom right molar Top front teeth cap Neck + limited neck extension Respiratory normal respiratory effort; no respiratory distress Auscultation: lungs clear to auscultation bilaterally; no wheezes Cardiovascular Rate/Rhythm: regular rate and regular rhythm Heart Sounds: no murmur Vessels: no carotid bruit Musculoskeletal Spine: no pain with cervical ROM Extremities: extremities normal to inspection Psychiatric Orientation: alert Lab Results Anesthesia Preop Results Results Anesthesia Widget: WBC 10.73 K/ul (4.8-10.8) 11/12/24 Hgb 14.3 g/dl (14.0-18.0) 11/12/24 Hct 40.4 % (42.0-52.0) L 11/12/24 Plt 328 K/uL (130-400) 11/12/24 Na 140 mmol/L (136-145) 11/12/24 K 4.4 mmol/L (3.5-5.1) 11/12/24 Cl 101 mmol/L (98-107) 11/12/24 CO2 33 mmol/L (21-32) H 11/12/24 BUN 26 mg/dl (6-23) H 11/12/24 Creat 1.16 mg/dl (0.6-1.4) 11/12/24 Glucose Level 146 mg/dl (70-99(Fasting)) H 11/12/24 PT 11.3 Seconds (9.0-12.0) 11/12/24 PTT 23 Seconds (21-31) 11/12/24 INR 1.0 (0.9-1.1) 11/12/24 HA1c 7.6 % (4.5-5.6) H 11/12/24 Urine Color Dark Yellow 11/12/24 Urine Appearance Clear (Clear) 11/12/24 Urine pH 7.5 (4.5-7.5) 11/12/24 Urine Specific Riddle 1.022 (1.000-1.030) 11/12/24 Urine Protein Trace (Negative) H 11/12/24 Urine Glucose (UA) Negative (Negative) 11/12/24 Urine Ketones Trace (Negative) H 11/12/24 Urine Blood Negative (Negative) 11/12/24 Urine Nitrite Negative (Negative) 11/12/24 Urine Bilirubin Negative (Negative) 11/12/24 Urine Urobilinogen Negative (Negative) 11/12/24 Urine Leukocyte Esterase Negative (Negative) 11/12/24 Urine WBC (Auto) 0-5 /hpf (0-5) 11/12/24 Urine RBC (Auto) 3-5 /hpf (0-2) H 11/12/24 Urine Hyaline Casts (Auto) 0-2 /lpf (0-2) 11/12/24 Urine Epithelial Cells (Auto) 0-2 /hpf (0-2) 11/12/24 Urine Bacteria (Auto) None Seen (None Seen) 11/12/24 Blood Type A Positive 11/12/24 Antibody Screen NEGATIVE 11/12/24 Testing Electrocardiogram Date: 11/12/24 Findings: + SB @ (58bpm) Incomplete RBBB Chest X-Ray Date: 11/12/24 Findings: + NAD Stress Test Date: 12/13/23 Resting EF: 50-55% Resting LV Function: Low normal Resting RWMA: + pertinent finding (Very mild hypokinesis of the inferior lateral base.) No ischemic changes noted at 62% MPHR, but cannot exclude ischemic changes at faster heart rates. Nondiagnostic stress echo as target heart rate was not obtained Nondiagnostic exercise stress EKG as target heart rate was not obtained Mildly blunted BP response to exercise No arrhythmia Study terminated due to back pain. No chest pain reported. Good exercise tolerance. Mild concentric LVH. Mild left atrial dilation. Mild MR Normal estimated RVSP
[2024-12-05] MEDS: GABAPENTIN 300 MG CAP PO SCH (06:46)
[2024-12-05] MEDS: ACETAMINOPHEN 500 MG TAB PO SCH (06:46)
[2024-12-05] MEDS: CeleBREX 200 MG CAP PO SCH (06:46)
[2024-12-05] MEDS: LR 15ML/HR IV SCH (06:47)
[2024-12-05] MEDS: LR 60ML/HR IV SCH (06:47)
[2024-12-05] MEDS ORDERED: ONDANSETRON INJ 2 MG/ML 2 ML VIAL IV PRN ×2 (07:03→12:41)
[2024-12-05] MEDS ORDERED: ONDANSETRON INJ 2 MG/ML 2 ML VIAL ONE (07:03)
[2024-12-05] MEDS ORDERED: HYDROmorphone INJ 2 MG/ML SYR/VIAL IV PRN (07:03)
[2024-12-05] MEDS ORDERED: ATROPINE SULFATE 0.1 MG/ML 10ML SYR IV PRN (07:03)
[2024-12-05] MEDS ORDERED: PROPOFOL IV EMULSION 10 MG/ML 20 ML VIAL IV ONE (07:03)
[2024-12-05] MEDS ORDERED: DEXAMETHASONE SOD INJ 4 MG/ML VIAL ONE (07:03)
[2024-12-05] MEDS ORDERED: GLYCOPYRROLATE 0.2 MG/ML VIAL ONE (07:03)
[2024-12-05] MEDS ORDERED: ROCURONIUM BROMIDE 10 MG/ML 5 ML VIAL IV ONE (07:03)
[2024-12-05] MEDS ORDERED: LIDOCAINE 2% 2 ML VIAL/AMP(20MG/ML) INFIL ONE (07:03)
[2024-12-05] MEDS ORDERED: MIDAZOLAM HCL 1 MG/ML 2ML VIAL ONE (07:04)
[2024-12-05] MEDS ORDERED: SUGAMMADEX SODIUM 200 MG/2 ML VIAL IV ONE (07:11)
--- NOTE | 2024-12-05 07:37 | History & Physical Bridge Note ---
Date of Service December 05, 2024 History & Physical Bridge Note I have examined the patient, reviewed the History & Physical and in the interval since the performance of the History & Physical I have noted the following changes of clinical significance: no changes noted
--- NOTE | 2024-12-05 07:38 | History & Physical Report ---
Date of Service December 05, 2024 Assessment & Plan (1) Other spondylosis with radiculopathy, lumbar region: Plan: l 3 of L4 hardware removal L1-2 decompression T12-L4 fusion History of Present Illness Chief Complaint: Back and leg pain Primary Care Provider: Brain Zamorano MD This is a 79-year-old male presents for chronic persistent back and leg pain after failed course of nonoperative care is here for surgical intervention. Allergies Allergy/AdvReac Type Severity Reaction Status Date / Time No Known Allergies Allergy Verified 12/05/24 06:31 Home Medications Medication Instructions Recorded Confirmed Type aspirin 81 mg tablet 81 mg PO QPM #30 tabs 01/18/19 12/05/24 History albuterol sulfate 90 mcg/actuation 2 puff inhalation Q4H PRN 08/26/22 11/19/24 Rx aerosol inhaler shortness of breath or wheezing #8.5 grams valacyclovir 1 gram tablet 2,000 mg (2 x 1 gram) PO BID PRN 01/24/24 11/19/24 Rx cold sores 1 day #20 tabs blood sugar diagnostic #100 ea 02/10/24 11/19/24 Rx blood sugar diagnostic #100 ea 02/10/24 11/19/24 Rx blood-glucose meter (OneTouch #1 ea 02/10/24 11/19/24 Rx Ultra2 Meter) metoprolol tartrate 25 mg tablet 25 mg PO BID #180 tabs 09/04/24 12/05/24 Rx meloxicam 15 mg tablet 15 mg PO DAILY PRN pain #90 tabs 09/11/24 12/05/24 Rx enalapril maleate 10 mg tablet 10 mg PO BID #180 tabs 10/23/24 12/05/24 Rx Glucotrust 1 cap PO DAILY 11/06/24 12/05/24 History cholecalciferol (vitamin D3) 10 10 mcg PO QAM 11/06/24 12/05/24 History mcg (400 unit) capsule (Vitamin D3) coenzyme Q10 100 mg capsule 100 mg PO QAM 11/06/24 12/05/24 History (CoQ-10) docosahexaenoic acid (dha)-epa 1 cap PO QAM 11/06/24 12/05/24 History capsule flaxseed 1,000 mg capsule 1,000 mg PO QAM 11/06/24 12/05/24 History glucosamine-chondroitin 250 mg-200 1 tab PO DAILY 11/06/24 12/05/24 History mg tablet hydrochlorothiazide 25 mg tablet 25 mg PO QAM 11/06/24 12/05/24 History metformin 500 mg tablet 500 mg PO QPM 11/06/24 12/05/24 History multivit,calcium,min-folic acid 1 tab PO QAM 11/06/24 12/05/24 History 240 mcg-D3 25 mcg-lycop 300 mcg tablet (One A Day Men Complete) rosuvastatin 10 mg tablet 10 mg PO QAM 11/06/24 12/05/24 History saw palmetto 450 mg capsule 900 mg PO QAM 11/06/24 12/05/24 History vitamin E 400 unit tablet 400 mg PO QAM 11/06/24 12/05/24 History Past Med/Surg History Problem List (Updated 12/05/24 @ 07:37 by Giles Amador, DO) Other spondylosis with radiculopathy, lumbar region Encounter for pre-operative examination Lumbar spinal stenosis Knee pain Low back pain Elevated PSA CAD (coronary artery disease) (Chronic) Controlled type 2 diabetes mellitus (Chronic) Generalized osteoarthritis (Chronic) Hyperlipidemia (Chronic) Hypertension (Chronic) Vasovagal syncope (Chronic) symptoms in the past with blood draws, typically when ill - no recent issues Medical History History of hepatitis Chronic back pain Osteoarthritis Diabetes mellitus, type 2 Hypertension Hyperlipidemia CAD (coronary artery disease) History of shortness of breath Surgical History History of elbow surgery History of lumbar spinal fusion History of colonoscopy History of insertion of dental endosseous implant History of bilateral cataract extraction History of detached retina repair History of heart artery stent (08/24/01) History of cardiac cath (08/24/01) S/P foot surgery, right S/P right knee arthroscopy S/P left knee arthroscopy Family History Brother Diabetes Mother Rheumatoid arthritis Other No family history of adverse response to anesthesia Denies family history of Sudden SIDS (sudden infant syndrome) Ovarian cancer Prostate cancer Deep vein thrombosis Osteoporosis Coronary heart disease Dyslipidemia Cerebral aneurysm Alzheimer disease Bipolar disorder Clotting disorder Crohn's disease Dementia Depression Heart disease Kidney disease Myocardial infarction Osteoarthritis Breast cancer Schizophrenia Congenital kidney disease Gestational diabetes Lung cancer COPD (chronic obstructive pulmonary disease) Colorectal cancer Pulmonary embolism Lung disease Cancer Hypertension Ulcerative colitis Colonic polyp Stroke Asthma Cystic kidney disease Social History Smoking Status: Never smoker Second Hand Exposure: No; Do You Dip or Chew Tobacco: No; Tobacco Cessation Education Requested by Patient: No Hx Alcohol Use: Yes Alcohol type: beer Hx Substance Use: No Preferred Language: [place] Communication Ability: Effective Visual Impairment: No Limitations Hearing Ability: Normal Study Assistant Required: No Beliefs That Will Affect Care: None marital status: Current Living Situation: Spouse current occupational status: retired Other Information That Helps Us Care for You: No Childhood Exposure to Second-Hand Smoke: Yes caffeine: Yes (RARLEY, ICE TEA) during the past year weight has: remained stable Dental Care, Regularly: Yes Physical Activity Frequency: 3-4 Times per Week Seatbelt Use: always Sunscreen Use: Yes Do you think of yourself as: straight/heterosexual Assistive Devices: Glasses Physical Exam Physical Exam: Patient is alert and oriented heart regular rhythm Lungs clear Results & Data Results & Data Vital Signs (Past 12 Hours) Vital Signs Temp Pulse Resp BP Pulse Ox O2 Del Method 12/05/24 06:36 36.4 C L 57 L 16 184/90 H 96 Room Air
[2024-12-05] MEDS: ceFAZolin 330 MG/ML 1 GM VIAL ONE (08:50)
[2024-12-05] MEDS: BUPIVACAINE/EPINEPHRINE 0.25% 1:200,000 30 ML VIAL ONE (08:51)
[2024-12-05] MEDS: FLOSEAL HEMOSTATIC MATRIX 10ML TOP ONE (10:09)
--- NOTE | 2024-12-05 10:12 | Operative Report ---
Post Operative Report Pre & Post Diagnosis Operation Date: 12/05/24 07:45 Pre-Op Diagnosis: #1 lumbar spondylosis with radiculopathy #2 lumbar spinal stenosis Post-Op Diagnosis: Same I identified the patient and participated in the time-out.: Yes Procedure Operation Date: 12/05/24 07:45 Actual Procedures #1 removal of posterior instrumentation L2-L4. #2 exploration of fusion L2-L4 with notable nonunion L2-L3. #3 decompression with bilateral medial facetectomies and foraminotomies T12-L1 L1-L2. #4 posterior spinal fusion T12- L3. #5 placement posterior instrumentation T12-L4 using Villanueva. #6 placement locally harvested morselized autograft and posterior gutters. #7 placement infuse collagen sponge combined with Koros in the posterior lateral gutters and #8 application of versa wrap of the exposed dura. Surgeon Giles Amador DO Sash Maker None Estimated Blood Loss 200 Findings Consistent with Post-Op Diagnosis Specimens None Indications This is a 71-year-old male known to me that presents manage diagnosed in question nonoperative care is here for surgical invention. Description of Procedure Patient was met with identified informed consent obtained. Patient was then taken to the operative suite underwent sedation placed in a prone position on the Reginald table top the Ethan frame. All bony prominences well-padded eyes inspected to ensure no external pressure placed upon them. This point a thorough lumbar spine was prepped and draped no sterile fashion. Sharp dissection with the assistance of Bovie cautery from down to and exposing the lamina transverse processes of T12-L1 and the instrumentation at L2-L3-L4 bilaterally. I then proceeded with the hardware bilaterally explored the fusion mass noting a nonunion L2-L3. I then performed a complete laminectomy of L1 with bilateral medial facetectomies and foraminotomies followed by partial childers inectomy T12 with bilateral male facetectomies to address all spinal stenosis. Pedicle screws then placed in T12 L1-L2 and L4 bilaterally with assistance of fluoroscopy in the process meryl placed and locked in position. Transverse processes of T12 L1-L2-L3 burred to subcortical bleeding bone. Infuse collagen sponge, with Koros and local autograft placed in posterolateral gutters. First wrap placed over the exposed dura. 15 round CLEVE drain inserted. The incision was then closed 1 Vicryl the fascia 2-0 Vicryl subcutaneously and 4-0 Monocryl for final skin closure. Steri-Strips sterile dressing placed. Patient waken taken the PACU stable condition. Im ordering 10 grams of Collagen Powder ([facility] A6010 Primary Dressing) and 10 bordered super absorbent ([facility] A6196 Secondary Dressing) to treat an incision wound that was caused by a spine procedure. The incision is approximately 2 cm(W) x 2 cm(L) down to the spinal column and epidural space 2 cm (D) in size and is a full thickness wound showing no signs of infection. Collagen comes in 1 gram packets so 10 packets were ordered. Given the size of the wound, with moderate exudate I chose to order a 10 day supply. The patient will be provided instructions for proper application of the collagen wound kit. The patient will be asked to apply the collagen powder daily and then cover it with sterile dressings dispensed. Collagen was selected as I expect the collagen to attract monocytes and fibroblasts, act as a sacrificial substrate for MMPs, and ultimately proved a matrix for tissue and vessel growth. The collagen will act as a primary dressing in this scenario. It is medically necessary for proper healing of these wounds to improve bioavailability and contact with each wound surface, this is also to help prevent infection of wounds and promote healing ultimately leading to a better healing outcome and limit the risk of infection. I attest to the content of the Intraoperative Record and any orders documented therein. Any exceptions are noted below.
--- NOTE | 2024-12-05 10:39 | Fluoroscopy Report ---
FL lumbar spine 2-3V CLINICAL HISTORY: L2-L4 HW REMOVAL L1-L2 DECOMP T12-L4 FUSION COMPARISON STUDY: 10/19/2010 FLUOROSCOPY TIME: 19.5 seconds FLUOROSCOPY IMAGES: 3 EXPOSURE DOSE: 14.83 mGy FINDINGS: Multilevel posterior interbody meryl and screw fusion hardware is noted. 2 level discectomy c hanges. Exact numbering is not definitive based on magnification of the images submitted. No unexpect ed opaque foreign bodies. Multilevel intervertebral disc space narrowing with spondylitic spurring. N ote that the images were submitted following completion of the surgery. IMPRESSION: Fluoroscopic assistance as above. ACT 112: Negative or not required by law. Electronically signed by: Lazaro Arevalo M.D. 12/05/2024 10:37 AM
[2024-12-05] MEDS: HYDROmorphone INJ 1 MG/ML SYRINGE IV PRN (11:01)
--- NOTE | 2024-12-05 11:12 | Anesthesiology Progress Note ---
Date of Service December 05, 2024 Anesthesia Post Procedure Vital Signs Vital Signs: Temp Pulse Pulse Resp BP Pulse Ox O2 Del Method 12/05/24 11:05 70 18 137/62 94 Oxymask 12/05/24 10:55 67 15 126/78 94 Oxymask 12/05/24 10:45 68 16 159/98 H 98 Oxymask 12/05/24 10:35 68 15 155/78 H 97 Oxymask 12/05/24 10:25 73 13 141/88 H 98 Oxymask 12/05/24 10:15 36.8 C 70 12 168/75 H 96 Oxymask 12/05/24 06:36 36.4 C L 57 L 16 184/90 H 96 Room Air O2 Flow Rate 12/05/24 11:05 2 12/05/24 10:55 2 12/05/24 10:45 5 12/05/24 10:35 5 12/05/24 10:25 5 12/05/24 10:15 5 12/05/24 06:36 Pain Intensity Back: Pain Intensity: 5 Transfer of Care Handoff Completed per policy Notes Mental Status: alert / awake / arousable Patient Amnestic to Procedure: Yes Nausea / Vomiting: adequately controlled Pain: adequately controlled Airway Patency, RR, SpO2: stable & adequate BP & HR: stable & adequate Hydration State: stable & adequate Anesthetic Complications: no major complications apparent and Pt Satisfied with anesthetic care
[2024-12-05] MEDS ORDERED: SOD PHOSPHATE/SOD BIPHOSPHATE ENEMA 132 ML BTL PR PRN (12:41)
[2024-12-05] MEDS ORDERED: DO NOT ADMINISTER PNEUMOCOCCAL VACCINE PRN (12:41)
[2024-12-05] MEDS ORDERED: FAMOTIDINE 20 MG TAB PO PRN (12:41)
[2024-12-05] MEDS ORDERED: PHARMACY GLYCEMIC MGMT CONSULT PRN (12:41)
[2024-12-05] MEDS ORDERED: PROMETHAZINE 12.5 MG/50.5 ML BAG IV PRN (12:41)
[2024-12-05] MEDS ORDERED: ACETAMINOPHEN 1,000 MG/100 ML VIAL IV PRN (12:41)
[2024-12-05] MEDS ORDERED: METOCLOPRAMIDE HCL INJ 5 MG/ML 2 ML VIAL IV PRN (12:41)
[2024-12-05] MEDS ORDERED: HYDROmorphone INJ 1 MG/ML SYRINGE IV PRN (12:41)
[2024-12-05] MEDS ORDERED: diphenhydrAMINE Capsule 25 MG CAP PO PRN (12:41)
[2024-12-05] MEDS ORDERED: HYDROmorphone INJ 0.5 MG/0.5 ML SYR IV PRN (12:41)
[2024-12-05] MEDS ORDERED: ALUMINUM/MAGNESIUM SUSP 30 ML UDC PO PRN (12:41)
[2024-12-05] MEDS ORDERED: ALBUTEROL HFA 8 GM INHALER INH PRN (12:41)
[2024-12-05] MEDS ORDERED: DO NOT ADMINISTER FLU VACCINE PRN (12:41)
[2024-12-05] MEDS ORDERED: NALOXONE HCL 0.4 MG/1 ML VIAL/CARP IV PRN (12:41)
[2024-12-05] MEDS ORDERED: MAGNESIUM HYDROXIDE SUSP 30 ML UDC PO PRN (12:41)
[2024-12-05] MEDS ORDERED: LORazepam 0.5 MG TAB PO PRN (12:41)
[2024-12-05] MEDS ORDERED: ONDANSETRON 4 MG OD TAB PO PRN (12:41)
[2024-12-05] MEDS: ACETAMINOPHEN 500 MG TAB PO PRN (13:06)
[2024-12-05] MEDS ORDERED: GLUCOSE 10 TAB/TUBE PO PRN (13:30)
[2024-12-05] MEDS ORDERED: GLUCOSE 40% GEL 15 GM TUBE PO PRN (13:30)
[2024-12-05] MEDS ORDERED: DEXTROSE 50% 50 ML SYRINGE IV PRN (13:30)
[2024-12-05] MEDS ORDERED: CARBOHYDRATES FOR HYPOGLYCEMIA PO PRN (13:30)
[2024-12-05] MEDS ORDERED: GLUCAGON FOR INJ 1 MG VIAL SQ PRN (13:30)
[2024-12-05] MEDS: INSULIN ASPART PER UNIT CHARGE SC SCH (13:48)
[2024-12-05] MEDS: LANTUS PER UNIT CHARGE SC ONE (13:49)
--- NOTE | 2024-12-05 14:05 | Pharmacy Report ---
Pharmacy Glycemic Short Note 2 - Date of Service December 05, 2024 - Glycemic Short BSG Results (Last 24 hours): 12/05/24 12/05/24 12/05/24 06:36 10:15 13:28 POC Glucose 157 H 167 H 207 H OUTPATIENT ANTIDIABETIC REGIMEN: * metformin 500mg po daily HbA1c: 7.6% on 11/12/24 ASSESSMENT: * Sotero is a 79 year old male who was admitted today for spinal decompression/fusion. Pharmacy was consulted for glycemic management postop. * BSG preop was 157mg/dL and postop was 167mg/dL. Patient did receive dexamethasone 8mg iv x 1 preop. Lantus 15 units SQ x 1 was ordered and he was started on a weight based bolus insulin regimen with a stress of 2 PLAN FOR INPATIENT GLYCEMIC CONTROL: * Hold outpatient diabetes medications * Basal insulin * Lantus 15 units SQ x 1, further need will be based on additional BSG readings * Bolus insulin * NovoLog per scale ACHS or Q6hrs while NPO * Goal Range: Low 110 mg/dL - High 140 mg/dL * Correction Factor: 25 mg/dL/unit * Nutritional / Prandial insulin per carb ratio of 1 unit per 9 grams CHO consumed
--- NOTE | 2024-12-05 15:17 | Hospitalist Consultation ---
Date of Consultation December 05, 2024 Assessment & Plan (1) Lumbar spinal stenosis: (2) CAD (coronary artery disease): (3) Controlled type 2 diabetes mellitus: (4) Hyperlipidemia: (5) Hypertension: Plan #Lumbar stenosis with radiculopathy s/p L-L2 decompression, T12-L4 fusion and L2-L4 hardware removal with Dr Amador 12/05. EBL 200cc Pain control, bowel regimen, PT/OT/DVT prophylaxis per primary service Monitor labs/exam in AM #CAD, HTN, HLD - follows with Dr Herman, pre-op clearance note reviewed. Neg stress echo last November Continue metoprolol, statin, aspirin to be continued during anil-operative period and has been ordered for this evening MAE/HCTZ on hold post-op but likely can resume in AM if BP/renal function stable and BP currently well controlled 128/72 #DM II- A1c controlled on metformin daily, A1c 7.6 most recently. Pharmacy on consult for glycemic management while inpatient. Monitor BSGs/adjust SSI as needed w/ ongoing steroids DVT proph: SCDs, bryce arechiga. Dispo: continued monitoring inpatient post-op Thank you for allowing hospitalist service to participate in the care of Mr Mobley. Hospitalist service will follow along in AM. Please call with any questions/concerns Supervising Physician Co-Signing Physician Notes The patient was seen by me. The chart was reviewed. Case discussed with KAREN uMrray. Agree with assessment and plan History of Present Illness Reason for Consultation: medical management Requesting Physician: Dr Amador Attending Physician: Giles Amador, DO History of Present Illness 79yo male with PMHx significant for CAD, HTN, HLD, DM II and prior back surgeries by Dr mAador x 2 presented for lumbar surgery with Dr Amador after failed course of non-operative care. Eval in 317, in room. Doing well, pain controlled. Reports not his first surgery, aware of expected course. No CP/SOB, nausea/abdominal pain. Mckeon in place. +BS but no BM. Bowel regimen in place. CLEVE w/ bloody drainage and monitoring w/ continued aspirin. No pitting edema, dorsiflexion/plantar flexion intact. Will plan to monitor pain control/bowels/therapy and dc when appropriate. Off metformin for now, will use SSi. Questions/concerns addressed at this time. Allergies Allergy/AdvReac Type Severity Reaction Status Date / Time No Known Allergies Allergy Verified 12/05/24 06:31 Home Medications Medication Instructions Recorded Confirmed Type aspirin 81 mg tablet 81 mg PO QPM #30 tabs 01/18/19 12/05/24 History albuterol sulfate 90 mcg/actuation 2 puff inhalation Q4H PRN 08/26/22 11/19/24 Rx aerosol inhaler shortness of breath or wheezing #8.5 grams valacyclovir 1 gram tablet 2,000 mg (2 x 1 gram) PO BID PRN 01/24/24 11/19/24 Rx cold sores 1 day #20 tabs blood sugar diagnostic #100 ea 02/10/24 11/19/24 Rx blood sugar diagnostic #100 ea 02/10/24 11/19/24 Rx blood-glucose meter (OneTouch #1 ea 02/10/24 11/19/24 Rx Ultra2 Meter) metoprolol tartrate 25 mg tablet 25 mg PO BID #180 tabs 09/04/24 12/05/24 Rx meloxicam 15 mg tablet 15 mg PO DAILY PRN pain #90 tabs 09/11/24 12/05/24 Rx enalapril maleate 10 mg tablet 10 mg PO BID #180 tabs 10/23/24 12/05/24 Rx Glucotrust 1 cap PO DAILY 11/06/24 12/05/24 History cholecalciferol (vitamin D3) 10 10 mcg PO QAM 11/06/24 12/05/24 History mcg (400 unit) capsule (Vitamin D3) coenzyme Q10 100 mg capsule 100 mg PO QAM 11/06/24 12/05/24 History (CoQ-10) docosahexaenoic acid (dha)-epa 1 cap PO QAM 11/06/24 12/05/24 History capsule flaxseed 1,000 mg capsule 1,000 mg PO QAM 11/06/24 12/05/24 History glucosamine-chondroitin 250 mg-200 1 tab PO DAILY 11/06/24 12/05/24 History mg tablet hydrochlorothiazide 25 mg tablet 25 mg PO QAM 11/06/24 12/05/24 History metformin 500 mg tablet 500 mg PO QPM 11/06/24 12/05/24 History multivit,calcium,min-folic acid 1 tab PO QAM 11/06/24 12/05/24 History 240 mcg-D3 25 mcg-lycop 300 mcg tablet (One A Day Men Complete) rosuvastatin 10 mg tablet 10 mg PO QAM 11/06/24 12/05/24 History saw palmetto 450 mg capsule 900 mg PO QAM 11/06/24 12/05/24 History vitamin E 400 unit tablet 400 mg PO QAM 11/06/24 12/05/24 History oxycodone 5 mg tablet 5 mg PO Q6H PRN pain #30 tabs 12/05/24 Rx tramadol 50 mg tablet 50 mg PO Q6H PRN pain, moderate 12/05/24 Rx #30 tabs Patient History Medical History History of hepatitis Chronic back pain Osteoarthritis Diabetes mellitus, type 2 Hypertension Hyperlipidemia CAD (coronary artery disease) History of shortness of breath Surgical History History of elbow surgery History of lumbar spinal fusion History of colonoscopy History of insertion of dental endosseous implant History of bilateral cataract extraction History of detached retina repair History of heart artery stent (08/24/01) History of cardiac cath (08/24/01) S/P foot surgery, right S/P right knee arthroscopy S/P left knee arthroscopy Family History Brother Diabetes Mother Rheumatoid arthritis Other No family history of adverse response to anesthesia Denies family history of Sudden SIDS (sudden syndrome) Ovarian cancer Prostate cancer Deep vein thrombosis Osteoporosis Coronary heart disease Dyslipidemia Cerebral aneurysm Alzheimer disease Bipolar disorder Clotting disorder Crohn's disease Dementia Depression Heart disease Kidney disease Myocardial infarction Osteoarthritis Breast cancer Schizophrenia Congenital kidney disease Gestational diabetes Lung cancer COPD (chronic obstructive pulmonary disease) Colorectal cancer Pulmonary embolism Lung disease Cancer Hypertension Ulcerative colitis Colonic polyp Stroke Asthma Cystic kidney disease Social History Smoking Status: Never smoker Second Hand Exposure: No; Do You Dip or Chew Tobacco: No; Tobacco Cessation Education Requested by Patient: No Hx Alcohol Use: Yes Alcohol type: beer Hx Substance Use: No Preferred Language: Vietnamese Communication Ability: Effective Visual Impairment: No Limitations Hearing Ability: Normal Machine Builder Required: No Beliefs That Will Affect Care: None marital status: Current Living Situation: Spouse current occupational status: retired Other Information That Helps Us Care for You: No Childhood Exposure to Second-Hand Smoke: Yes caffeine: Yes (RARLEY, ICE TEA) during the past year weight has: remained stable Dental Care, Regularly: Yes Physical Activity Frequency: 3-4 Times per Week Seatbelt Use: always Sunscreen Use: Yes Do you think of yourself as: straight/heterosexual Assistive Devices: Glasses Review of Systems Review of Systems: All systems reviewed & are unremarkable except as noted in HPI & below Physical Exam Physical Exam: General: 79yo male sitting up in bed post-op, NAD, in room Head atraumatic, normocephalic, mmm, trachea midline Resp: even/unlabored, no wheezing/rales, on room air, no tachypnea CV: regular, no significant m/r/g, no pitting edema, bryce hose in place GI: +BS, slight distension but nontender, no rebound/guarding : mckeon w/ yellow urine draining MSK/Neuro: dressing to lumbar spine not removed, CLEVE w/ bloody drainage, compartments soft, dorsiflexion/plantar flexion intact, pulses equal Psych: AOx3, cooperative and pleasant during encounter, joking about being his girlfriend Results & Data Results & Data Vital Signs (Past 12 Hours) Vital Signs Temp Pulse Pulse Resp BP BP Pulse Ox 12/05/24 14:33 36.4 C L 74 16 147/76 H 94 12/05/24 13:29 36.5 C 75 16 161/85 H 94 12/05/24 13:00 36.5 C 72 16 139/73 95 12/05/24 12:30 36.4 C L 72 16 158/67 H 95 12/05/24 12:15 65 14 136/69 93 12/05/24 12:00 72 16 143/70 H 95 12/05/24 11:45 67 12 138/72 92 12/05/24 11:30 72 15 138/64 95 12/05/24 11:25 36.5 C 70 15 146/76 H 95 12/05/24 11:15 70 16 149/63 H 93 12/05/24 11:05 70 18 137/62 94 12/05/24 10:55 67 15 126/78 94 12/05/24 10:45 68 16 159/98 H 98 12/05/24 10:35 68 15 155/78 H 97 12/05/24 10:25 73 13 141/88 H 98 12/05/24 10:15 36.8 C 70 12 168/75 H 96 12/05/24 06:36 36.4 C L 57 L 16 184/90 H 96 O2 Del Method O2 Flow Rate 12/05/24 14:33 Nasal Cannula 2 12/05/24 13:29 Nasal Cannula 2 12/05/24 13:00 Nasal Cannula 2 12/05/24 12:30 Nasal Cannula 2 12/05/24 12:15 Nasal Cannula 2 12/05/24 12:00 Nasal Cannula 2 12/05/24 11:45 Nasal Cannula 2 12/05/24 11:30 Nasal Cannula 2 12/05/24 11:25 Oxymask 2 12/05/24 11:15 Oxymask 2 12/05/24 11:05 Oxymask 2 12/05/24 10:55 Oxymask 2 12/05/24 10:45 Oxymask 5 12/05/24 10:35 Oxymask 5 12/05/24 10:25 Oxymask 5 12/05/24 10:15 Oxymask 5 12/05/24 06:36 Room Air Diagnostic Findings Lumbar Spine X-Ray 12/05/24 07:45 FL lumbar spine 2-3V CLINICAL HISTORY: L2-L4 HW REMOVAL L1-L2 DECOMP T12-L4 FUSION COMPARISON STUDY: 10/19/2010 FLUOROSCOPY TIME: 19.5 seconds FLUOROSCOPY IMAGES: 3 EXPOSURE DOSE: 14.83 mGy FINDINGS: Multilevel posterior interbody meryl and screw fusion hardware is noted. 2 level discectomy changes. Exact numbering is not definitive based on magnification of the images submitted. No unexpected opaque foreign bodies. Multilevel intervertebral disc space narrowing with spondylitic spurring. Note that the images were submitted following completion of the surgery. IMPRESSION: Fluoroscopic assistance as above. ACT 112: Negative or not required by law. Electronically signed by: Lazaro Arevalo M.D. 12/05/2024 10:37 AM PG Care Time/CCT Total # of Minutes Spent Total Time Spent with Patient: Total time spent is greater than 50% in coordination of care (as documented) at patient's floor/unit and/or counseling patient: Coding Level of Care Code 70261 IN/OBS CONSULT LVL 3,45M Diagnoses Lumbar spinal stenosis M48.061 CAD (coronary artery disease) I25.10 Controlled type 2 diabetes mellitus E11.9 Hyperlipidemia E78.5 Hypertension I10
[2024-12-05] MEDS ORDERED: INSULIN ASPART PER UNIT CHARGE SC SCH (16:30)
[2024-12-05] MEDS ORDERED: ENALAPRIL MALEATE 10 MG TAB PO SCH (21:00)
[2024-12-05] MEDS: ASPIRIN 81 MG ECTAB PO SCH (21:31)
[2024-12-05] MEDS: METOPROLOL TARTRATE 25 MG TAB PO SCH (21:31)
[2024-12-05] MEDS: DOCUSATE SODIUM/SENNA 50/8.6MG TAB PO SCH (21:32)
[2024-12-06 00:54] VITALS: RESP 16
[2024-12-06] MEDS: POLYETHYLENE (MIRALAX) 17 GM PACK PO SCH (06:52)
[2024-12-06 08:18] LABS: Hematocrit (blood only) 36.6 % (42.0-52.0); Hemoglobin 13.0 g/dl (14.0-18.0); Immature Granulocytes # (auto) 0.04 K/uL (0.01-0.20); Immature Granulocytes % (auto) 0.2 %; Mean Corpuscular Hemoglobin 31.9 pg (25.0-34.0); Mean Corpuscular Volume 89.9 fL (80.0-100.0); Platelet Count 235 K/uL (130-400); RDW Standard Deviation 39.8 fL (36.4-46.3); Red Blood Count 4.07 M/uL (4.70-6.10); White Blood Count 16.67 K/ul (4.8-10.8)
[2024-12-06] MEDS: ROSUVASTATIN CALCIUM 10 MG TAB PO SCH (08:33)
[2024-12-06] MEDS: dexAMETHasone 4 MG in SYRINGE 0 ML IV SCH (08:33)
[2024-12-06] MEDS: TOCOPHERYL, DL-ALPHA 400 UNITS 180 MG CAP PO SCH (08:35)
[2024-12-06] MEDS: CHOLECALCIFEROL 10 MCG (400 UNITS) TAB PO SCH (08:35)
[2024-12-06 08:39] LABS: Anion Gap 7.0 (3-11); Blood Urea Nitrogen 20.0 mg/dl (6-23); Calcium 9.0 mg/dl (8.6-10.3); Carbon Dioxide 28.0 mmol/L (21-32); Chloride 103.0 mmol/L (98-107); Creatinine Clr Calc Pharmacy 59.0 ml/min; Glucose 169.0 mg/dl (70-99(Fasting)); Potassium 3.9 mmol/L (3.5-5.1); Sodium 138.0 mmol/L (136-145)
[2024-12-06] MEDS: LANTUS PER UNIT CHARGE SC SCH (08:40)
[2024-12-06] MEDS ORDERED: NON-FORMULARY MEDICATION (Coenzyme Q10 [Coq-10] 100 mg Capsule) PO SCH (09:00)
[2024-12-06] MEDS ORDERED: hydroCHLOROthiazide 25 MG TAB PO SCH (09:00)
[2024-12-06] MEDS ORDERED: GLUCOTRUST PO SCH (09:00)
[2024-12-06] MEDS: hydroCHLOROthiazide 25 MG TAB PO SCH (10:07)
[2024-12-06] MEDS: ENALAPRIL MALEATE 10 MG TAB PO SCH (10:07)
--- NOTE | 2024-12-06 10:34 | Orthopedic Progress Note ---
Date of Service December 06, 2024 Assessment & Plan (1) Other spondylosis with radiculopathy, lumbar region: Plan: At this time we will continue physical therapy monitor his CLEVE operatively discharge home in next few days. Admission and Anticipated Discharge Date Admission Date: December 05, 2024 Subjective Back pain controlled leg pain improved Physical Exam Physical Exam: Patient is seen at the bedside. Is comfortable. Good strength testing. Results & Data Vital Signs (Past 12 Hours) Vital Signs Temp Pulse Resp BP BP Pulse Ox O2 Del Method 12/06/24 09:43 184/83 H 12/06/24 07:39 36.7 C 66 16 179/79 H 94 Room Air 12/06/24 04:23 36.6 C 66 16 167/81 H 95 Room Air 12/06/24 00:00 36.6 C 73 16 166/71 H 93 Room Air
--- NOTE | 2024-12-06 13:08 | Hospitalist Progress Note ---
Date of Service December 06, 2024 Assessment & Plan (1) Lumbar spinal stenosis: Plan: Postoperative day 1 after redo lumbar surgery per primary service (2) CAD (coronary artery disease): Plan: Stable. Continue current medical management (3) Controlled type 2 diabetes mellitus: Plan: Glucose 169 this morning, December 06. ADA diet. Continue current glucose management per pharmacy (4) Hyperlipidemia: Plan: Stable. Continue statin therapy (5) Hypertension: Plan: Blood pressure mildly elevated today, December 06 usual home medications started including enalapril and hydrochlorothiazide. He was already on metoprolol Plan Anticipate eventual discharge to home by primary service within the next day or 2 Admission and Anticipated Discharge Date Admission Date: December 05, 2024 Subjective Alert and oriented. No distress. Orthopedic spine entry noted. is at the bedside. Medically stable Review of Systems 2 Review of Systems: Constitutionalno fever or chills ENTno blurred vision, no double vision, no epistaxis, no sore throat Respiratoryno cough, no wheezing, no shortness of breath Cardiacno palpitations, no chest pain, no syncope Toby nausea, vomiting, diarrhea, melena, hematochezia GUno urinary retention, no urinary incontinence, no dysuria, no hematuria Musculoskeletalmild postoperative lumbar discomfort as expected Skinno bruising, no rashes, no pruritus Neurono isolated weakness, no paresthesia, no weakness Psychno depression, no anxiety Physical Exam 2 Physical Exam: General-alert and oriented x3, no fever, no chills HEENT-head atraumatic and normocephalic, pupils equal and reactive to light, extraocular muscles intact Neck-no lymphadenopathy or thyromegaly, trachea midline Chest-clear to auscultation. No rales, wheezing or rhonchi Cardiac-regular rate and rhythm, normal S1 and S2 Abdomen-normal bowel sounds, no hepatosplenomegaly Musculoskeletallumbar CLEVE drain remains in place with serosanguineous drainage Extremities-no cyanosis, clubbing, or edema Neuro-cranial nerves II through XII intact, motor and sensory function within normal limits, strength symmetrical, no focal deficits Psych-normal affect, normal mood Results & Data Results & Data Vital Signs (Past 12 Hours) Vital Signs Temp Pulse Resp BP BP Pulse Ox O2 Del Method 12/06/24 11:03 36.9 C 61 16 147/74 H 95 Room Air 12/06/24 09:43 184/83 H 12/06/24 07:39 36.7 C 66 16 179/79 H 94 Room Air 12/06/24 04:23 36.6 C 66 16 167/81 H 95 Room Air Laboratory Results 12/06/24 07:46 12/06/24 07:46 PG Care Time/CCT Total # of Minutes Spent Total Time Spent with Patient: Total time spent is greater than 50% in coordination of care (as documented) at patient's floor/unit and/or counseling patient: Coding Level of Care Code 33700 SUB INP/OBS CARE 2/35MIN Diagnoses Lumbar spinal stenosis M48.061 CAD (coronary artery disease) I25.10 Controlled type 2 diabetes mellitus E11.9 Hyperlipidemia E78.5 Hypertension I10
[2024-12-07 08:34] VITALS: BP 154/78; PULSE 66; TEMP 98.1; O2SAT 93
--- NOTE | 2024-12-07 09:05 | Pharmacy Report ---
Pharmacy Glycemic Short Note 2 - Date of Service December 07, 2024 - Glycemic Short BSG Results (Last 24 hours): 12/06/24 12/06/24 12/06/24 11:29 16:38 21:44 POC Glucose 215 H 199 H 147 H 12/06/24 12/07/24 23:49 07:34 POC Glucose 116 H 159 H OUTPATIENT ANTIDIABETIC REGIMEN: * metformin 500mg po daily HbA1c: 7.6% on 11/12/24 ASSESSMENT: 12/07/24: * Blood sugars have been somewhat elevated postoperatively likely due to inadequate basal on POD #0 * Basal insulin increased yesterday and bolus insulin intensified * Overall, blood sugars improved yesterday w/ further fasting blood sugar improvement today * Continues on dexamethasone 4 mg IV daily (dose 2 of 3) 12/05/24: * Sotero is a 79 year old male who was admitted today for spinal decompression/fusion. Pharmacy was consulted for glycemic management postop. * BSG preop was 157mg/dL and postop was 167mg/dL. Patient did receive dexamethasone 8mg iv x 1 preop. Lantus 15 units SQ x 1 was ordered and he was started on a weight based bolus insulin regimen with a stress of 2 PLAN FOR INPATIENT GLYCEMIC CONTROL: * Hold outpatient diabetes medications * Basal insulin * Lantus 30 units SC daily w/ IV dexamethasone * Bolus insulin * NovoLog per scale ACHS or Q6hrs while NPO * Goal Range: Low 110 mg/dL - High 140 mg/dL * Correction Factor: 20 mg/dL/unit * Nutritional / Prandial insulin per carb ratio of 1 unit per 6 grams CHO consumed
--- NOTE | 2024-12-07 09:08 | Discharge Summary ---
Date of Service December 07, 2024 Admission HPI Per Admitting Provider This is a 79-year-old male presents for chronic persistent back and leg pain after failed course of nonoperative care is here for surgical intervention. Principal Diagnosis Lumbar spondylosis with radiculopathy Discharge Data Allergies Allergy/AdvReac Type Severity Reaction Status Date / Time No Known Allergies Allergy Verified 12/05/24 06:31 Consultations 12/05/24 12:41 Consult Hospitalist Routine Procedures Performed Operation Date: 12/05/24 07:45 Actual Procedures p L1-L2 Decompression, T12-L4 Fusion(Not Applicable) - Giles Amador DO s L2-L4 Hardware Removal(Not Applicable) - Giles Amador DO Ordered Studies 12/05/24 07:45 [place] lumbar spine 2-3V Routine Hospital Course (1) Other spondylosis with radiculopathy, lumbar region: Patient underwent lumbar decompression fusion tolerated this well was taken to orthopedic for postoperative postop he progressed appropriately. Marked improvement of his back and leg symptoms. CLEVE drain decreasing. Extra strength testing. Subsidy discharged home. Discharge orders and instructions are on the chart for further review. Total Time Total Time Spent Total Time Spent (In Minutes): 20 minutes Discharge Plan Discharge Items Patient Disposition: Home - Self-Care Reason For Visit: Lumbar Region Spinal Stenosis with Neurogenic Guerda Discharge Diagnosis: Lumbar spondylosis with radiculopathy Activity: Resume your previous activity Non-emergency contact: Primary Care Provider Call non-emergency contact if: you have any medication questions Follow-up/Referrals: Brain Zamorano MD [Primary Care Provider] - Diet: Regular Addtl Attending Provider Instructions: ACTIVITY RECOMMENDATIONS: SELF CARE INSTRUCTIONS AFTER THORACIC/LUMBAR FUSIONS 1. You may walk to your tolerance. It is good exercise for your legs and back. Expect some back and intermittent leg aches and pains. 2. You may perform "counter-top" level activities (make a sandwich, lawanda with a project, etc.). 3. No bending or lifting of more than 10 pounds or back twisting of any nature (roll like a log when turning in bed). 4. You may ride in a car for 20-30 minutes at a time. No driving until after your first visit with your doctor. 5. Frequent changes of position and restricting sitting to 30 minutes at a time will help limit the amount of back spasms and stiffness you may experience. 6. You may discontinue the use of ambulatory aids (cane, crutches, etc.) once your strength and confidence allow. 7. You may strategic marketing manager the shower and let water strike your incision when you arrive home at least once daily. Do not take a tub bath, sit in a hot tub or go into a swimming pool until after your first recheck in the office. 8. You may resume previous diet. SPECIAL CARE INSTRUCTIONS: VERY IMPORTANT TO READ AND REVIEW A. Your surgical incision has been closed with a cosmetic suture under the skin that will dissolve in about 6 weeks. In 14 days, you can use a pair of clean scissors and cut the suture that is left outside of the skin at the ends of your incision. 1. The small skin tapes can be removed 7 days after surgery if they have not fallen off by that point. 2. You may keep the wound open to air as much as possible to promote healing after post-op day number 5 unless told otherwise by your doctor. 3. If you think the wound looks like it is becoming infected (redness or worsening drainage) and/or you are experiencing fever, chill or worsening back pain and muscle spasms, contact the office so that we may evaluate you as soon as possible. B. Complications are uncommon, but please contact us if you have any signs or symptoms of: 1. wound infection (fever higher than 102.5 degrees F, redness, separation of wound, drainage, or increasing pain from the incision) 2. blood clots in legs (pain, swelling, redness and warmth in legs) 3. urinary tract infection (fever higher than 102.5 degrees F, burning upon urination or increased frequency of urination) 4. nerve problems (inability to walk on your toes or heels, numbness, loss of bowel or bladder control) 5. any other symptoms that concern you C. Please call the office at if you have any concerns or questions about your operation or recovery. D. No smoking! Smoking drastically decreases the chance of a solid fusion. E. Do not take any anti-inflammatory medications (Indocin, Advil, Motrin, Aspirin, Naprosyn, etc.) as these may inhibit the chance of a solid fusion. Tylenol is okay to take for pain. MANAGING PAIN AFTER SPINAL SURGERY 1. Narcotic medication is intended for short-term use and will be provided for surgical pain. Surgical pain usually lasts for a period of 4-6 weeks. Narcotic medication includes Percocet, Vicodin, Darvocet, Tylenol #3 or Lortab. 2. Longer-term pain is more appropriately treated with non-narcotic medication such as Tylenol ES. 3. Muscle spasm is not appropriately treated with narcotics. Muscle relaxers such as Soma, Flexeril or Skelaxin can be used along with Tylenol ES. 4. Remember that we all live with some "aches and pains". This is not unusual or uncommon after an injury or as we get older. a. Back pain is expected and may include muscle spasms for 4 to 6 weeks after surgery. The pain should gradually improve. If the pain worsens for no apparent reason, please contact the office. b. Intermittent leg pain may also be experienced and should not be concerned about unless it worsens for no apparent reason. If so, please contact the office. 5. We will provide appropriate medication within the normal guidelines of their prescribed use. We will also be very cautious and aware of potential abuse and extended duration of patients' medication needs. a. Pain medications are for your comfort and to assist with sleep and rest so that the tissue can heal. They are not provided in order to return to normal activity and should not be used through the day. To do so or worsening pain at night can result from ongoing tissue damage and development of tolerance to the prescribed medicine. 6. Please allow 2-3 days to process refills. Prescriptions will not be mailed but must be picked up at the office. FOLLOW UP VISIT: Keep your scheduled follow-up appointment. Any questions, please call the office at . Pending Studies at Discharge: No Stand-Alone Forms: [employer] [place], Smoking Cessation Medications and DC Order Prescriptions: New tramadol 50 mg tablet 50 mg PO Q6H PRN (Reason: pain, moderate) Qty: 30 0RF oxycodone 5 mg tablet 5 mg PO Q6H PRN (Reason: pain) Qty: 30 0RF Continued valacyclovir 1 gram tablet 2,000 mg PO BID PRN (Reason: cold sores) 1 Days Qty: 20 5RF (DME) blood sugar diagnostic Strip See Dose Instructions .ROUTE .MEDSUPPLY Qty: 100 3RF Dose Instruction: As directed Rx Instructions: E11.9. check daily (DME) blood sugar diagnostic Strip See Dose Instructions .ROUTE .MEDSUPPLY Qty: 100 3RF Dose Instruction: As directed Rx Instructions: OneTouch ultra blue, check daily. E119 (DME) blood-glucose meter [OneTouch Ultra2 Meter] Misc See Rx Instructions .Route Qty: 1 0RF Rx Instructions: check bs once daily E11.9 metoprolol tartrate 25 mg tablet 25 mg PO BID Qty: 180 3RF meloxicam 15 mg tablet 15 mg PO DAILY PRN (Reason: pain) Qty: 90 3RF enalapril maleate 10 mg tablet 10 mg PO BID Qty: 180 3RF aspirin 81 mg tablet 81 mg PO QPM Qty: 30 albuterol sulfate 90 mcg/actuation HFA aerosol inhaler 2 puff inhalation Q4H PRN (Reason: shortness of breath or wheezing) Qty: 8.5 5RF vitamin E 400 unit Tablet 400 mg PO QAM cholecalciferol (vitamin D3) [Vitamin D3] 10 mcg (400 unit) Capsule 10 mcg PO QAM coenzyme Q10 [CoQ-10] 100 mg Capsule 100 mg PO QAM glucosamine-chondroitin [Osteo Bi-Flex] 250-200 mg Tablet 1 tab PO DAILY Fish Oil (with DHA-EPA) Capsule 1 cap PO QAM saw palmetto 450 mg Capsule 900 mg PO QAM flaxseed 1,000 mg Capsule 1,000 mg PO QAM One A Day Men Complete 240-25-300 mcg Tablet 1 tab PO QAM Glucotrust 1 cap PO DAILY metformin 500 mg tablet 500 mg PO QPM hydrochlorothiazide 25 mg tablet 25 mg PO QAM rosuvastatin 10 mg tablet 10 mg PO QAM Discharge Orders: Discharge Order (Routine); Ordered 12/07/24 Ordered By: Giles Amador Admission Data Admit Date/Time: 12/05/24 10:17 Attending Provider: Giles Amador Admit Provider: Giles Amador Primary Care Provider: Brain Zamorano Other Providers: David Cotto
--- NOTE | 2024-12-07 10:32 | Hospitalist Progress Note ---
Date of Service December 07, 2024 Assessment & Plan (1) Lumbar spinal stenosis: Plan: Postoperative day 2 after redo lumbar surgery. Management per primary service (2) CAD (coronary artery disease): Plan: Stable. Continue current medical management (3) Controlled type 2 diabetes mellitus: Plan: Glucose 159 [id number] this morning, December 06. ADA diet. Continue current glucose management per pharmacy (4) Hyperlipidemia: Plan: Stable. Continue statin therapy (5) Hypertension: Plan: Blood pressure acceptable for age. Continue current management. Plan He is medically stable for discharge home today, December 07, per primary service Admission and Anticipated Discharge Date Admission Date: December 05, 2024 Subjective Medically stable. He will be discharged later today, December 07, by the primary orthopedic spine service Review of Systems 2 Review of Systems: Constitutionalno fever or chills ENTno blurred vision, no double vision, no epistaxis, no sore throat Respiratoryno cough, no wheezing, no shortness of breath Cardiacno palpitations, no chest pain, no syncope Toby nausea, vomiting, diarrhea, melena, hematochezia GUno urinary retention, no urinary incontinence, no dysuria, no hematuria Musculoskeletalmild postoperative lumbar discomfort as expected Skinno bruising, no rashes, no pruritus Neurono isolated weakness, no paresthesia, no weakness Psychno depression, no anxiety Physical Exam 2 Physical Exam: General-alert and oriented x3, no fever, no chills HEENT-head atraumatic and normocephalic, pupils equal and reactive to light, extraocular muscles intact Neck-no lymphadenopathy or thyromegaly, trachea midline Chest-clear to auscultation. No rales, wheezing or rhonchi Cardiac-regular rate and rhythm, normal S1 and S2 Abdomen-normal bowel sounds, no hepatosplenomegaly Musculoskeletallumbar CLEVE drain remains in place with serosanguineous drainage Extremities-no cyanosis, clubbing, or edema Neuro-cranial nerves II through XII intact, motor and sensory function within normal limits, strength symmetrical, no focal deficits Psych-normal affect, normal mood Results & Data Results & Data Vital Signs (Past 12 Hours) Vital Signs Temp Pulse Resp BP Pulse Ox O2 Del Method 12/07/24 08:33 36.7 C 66 16 154/78 H 93 Room Air Laboratory Results 12/06/24 07:46 12/06/24 07:46 PG Care Time/CCT Total # of Minutes Spent Total Time Spent with Patient: Total time spent is greater than 50% in coordination of care (as documented) at patient's floor/unit and/or counseling patient: Coding Level of Care Code 39799 SUB INP/OBS CARE MIN Diagnoses Lumbar spinal stenosis M48.061 CAD (coronary artery disease) I25.10 Controlled type 2 diabetes mellitus E11.9 Hyperlipidemia E78.5 Hypertension I10
== END 2024-12-07 10:31 | disposition home or self-care (01) | DRG 448 ==
LOC: ASU 06:14 → 3E 10:17